=== PATIENT | female | born 1990 | race Caucasian/White ===

== ENCOUNTER 2017-12-14 14:11 | Emergency (ER) | payer MEDICAID, SELFPAY ==
[2017-12-14 14:12] VITALS: BP 123/82; PULSE 97; RESP 16; TEMP 37.3; O2SAT 98; BMI 43.2
--- NOTE | 2017-12-14 15:31 | CT_ITS ---
STUDY: CT ABDOMEN AND PELVIS WITHOUT CONTRAST REASON FOR EXAM: Female, 27 years old. Abdominal pain. Diarrhea. RADIATION DOSAGE (If Supplied By Facility): CTDIvol = ( 13.03 ) mGy, DLP = ( 1192.28 ) mGycm TECHNIQUE: Transaxial images were obtained from the dome of the diaphragm to the symphysis pubis without oral contrast, and without intravenous contrast. Sagittal and coronal images were reconstructed. Individualized dose optimization techniques were used for this CT. COMPARISON: 10/22/2017 FINDINGS: Evaluation of the abdominal viscera is limited in the absence of intravenous contrast. The visualized lung bases are clear. The visualized portions of the heart and pericardium are within normal limits. There are no calcified gallstones present. The liver demonstrates an unremarkable unenhanced appearance. The spleen is normal in size. The pancreas demonstrates an unremarkable unenhanced appearance. The adrenal glands are within normal limits. There are no renal or ureteral stones. There is no hydronephrosis. Normal visualized stomach. There are fluid-filled mildly thickened loops of small and large bowel, consistent with enterocolitis. There is no bowel obstruction. The appendix is visualized and appears normal. The aorta is normal in caliber. There is left upper quadrant mesenteric lymphadenopathy noted. There is no free air, free fluid or fluid collection. There are no destructive osseous lesions. CT/Abdomen/Pelvis W IV Cont ONLY IMPRESSION: Fluid-filled mildly thickened loops of small and large bowel which is consistent with enterocolitis. No bowel obstruction. Normal appendix. Left upper quadrant mesenteric lymphadenopathy. Electronically Signed: Shane Valdez, at 17:17 EDT Tel , Service support ,
--- NOTE | 2017-12-14 15:34 | ED.DCSUM_ITS ---
- ER Visit Summary Date of Service: 12/14/17 Chief Complaint: Abdominal pain and diarrhea History of Present Illness: The patient is a 27 F with history of kidney stones and GERD who presents for 3 days of worsening abdominal pain and diarrhea. Patient states she began having abdominal pain 3 days ago, and the next day it became acutely worse. It is generalized in more so on the left. She is having diarrhea every time she eats something. She describes it as watery stool. She has had 10-20 episodes. She took Pepto-Bismol 2 days ago and is still having black watery stool. No fever, chest pain, shortness of breath, cough, urinary symptoms, back pain. Patient has vomited twice after eating. He denies any history of similar symptoms. She has had a colonoscopy in the past due to a family history of early colon cancer. Physical Examination: Vital signs: afebrile, hemodynamically stable, no hypoxia on room air General: well nourished, well developed, in no distress Skin: warm, dry, no rash, no pallor HEENT: normocephalic and atraumatic; PERRL, EOMI, moist mucous membranes Cardiovascular: regular rate and rhythm without murmurs, no peripheral edema, 2 + pulses all distal extremities Respiratory: No increased work of breathing, lungs are clear to auscultation bilaterally, no rales, rhonchi or wheezing Abdominal: Abdomen is soft, diffusely tender, especially on the left upper and lower quadrants, with normoactive bowel sounds, no guarding or rebound, no masses, rectum is nontender, no external lesions, no cindy blood. Watery black stool on glove. MSK: Moves all extremities, no deformities, normal strength Neuro: Awake and alert, oriented ?4. No facial droop, sensation and motor function intact and symmetric Test Results: Abnormal Lab Results 12/14/17 12/14/17 12/14/17 15:46 15:46 16:18 WBC RBC Hgb Hct MCV MCH MCHC RDW RDW Differential Plt Count MPV Immature Gran % (Auto) Neut % (Auto) Lymph % (Auto) [place] % (Auto) Eos % (Auto) Baso % (Auto) Absolute Neuts (auto) Absolute Lymphs (auto) Total Counted Sodium 137 Potassium 3.4 L Chloride 105 Carbon Dioxide 22.0 Anion Gap 10 BUN 6 L Creatinine 0.86 Estim Creat Clear Calc 89.20 Est GFR (MDRD) Af Amer 103 Est GFR (MDRD) Non-Af 85 BUN/Creatinine Ratio 7.0 L Glucose 83 Calcium 8.6 Total Bilirubin 0.60 AST 23 ALT 30 Alkaline Phosphatase 110 Total Protein 7.5 Albumin 2.8 L Globulin 4.7 H Albumin/Globulin Ratio 0.6 L Lipase 125 Urine Color Yellow Urine Clarity Cloudy Urine pH 6.5 Ur Specific [place] 1.015 Urine Protein 30 H Urine Glucose (UA) Normal Urine Ketones 5 H Urine Occult Blood Negative Urine Nitrite Negative Urine Bilirubin 3 H Urine Urobilinogen 1 H Ur Leukocyte Esterase 25 H Urine Test Negative 12/14/17 16:18 WBC 5.6 RBC 4.84 Hgb 13.6 Hct 40.0 MCV 82.6 MCH 28.1 MCHC 34.0 RDW 13.4 RDW Differential 40.8 Plt Count 216 MPV 11.4 Immature Gran % (Auto) 0.200 Neut % (Auto) 54.0 Lymph % (Auto) 34.8 [place] % (Auto) 8.7 Eos % (Auto) 1.1 Baso % (Auto) 1.2 H Absolute Neuts (auto) 3.1 Absolute Lymphs (auto) 1.96 Total Counted Not Reportable Sodium Potassium Chloride Carbon Dioxide Anion Gap BUN Creatinine Estim Creat Clear Calc Est GFR (MDRD) Af Amer Est GFR (MDRD) Non-Af BUN/Creatinine Ratio Glucose Calcium Total Bilirubin AST ALT Alkaline Phosphatase Total Protein Albumin Globulin Albumin/Globulin Ratio Lipase Urine Color Urine Clarity Urine pH Ur Specific [place] Urine Protein Urine Glucose (UA) Urine Ketones Urine Occult Blood Urine Nitrite Urine Bilirubin Urine Urobilinogen Ur Leukocyte Esterase Urine Test Clinical Impression(s) from Imaging Studies Abdomen/Pelvis CT 12/14/17 15:31 IMPRESSION: Fluid-filled mildly thickened loops of small and large bowel which is consistent with enterocolitis. No bowel obstruction. Normal appendix. Left upper quadrant mesenteric lymphadenopathy. Electronically Signed: Shane Valdez, at 17:17 EDT Tel , Service support , Emergency Department Course and Treatment: Patient was offered and declined any pain or nausea medicine. Lab work was performed showing no leukocytosis, no significant electrolyte derangements, normal hepatic function, negative . Fecal occult test was negative, and this is consistent with patient' s black stool being secondary to Pepto-Bismol use. CT the abdomen and pelvis showed enterocolitis with some left upper quadrant mesenteric lymphadenitis. Patient is very well-appearing, afebrile, and nontoxic appearing. At this time antibiotics are not indicated, as there is no indication that she has a bacterial infection that would warrant antibiotic treatment. I discussed with her that if she continues to have diarrhea she needs to have stool studies performed by her doctor. At this time she will continue symptomatic care. She was given a prescription for Zofran for any further nausea. She agreed with this plan was discharged home. Treatment Plan: [] Disposition: [] Impression: Enterocolitis This note was generated with [employer] dictation software. It may contain incorrect words, spelling, and punctuation that were not noted in review of the chart prior to signing ED Disposition - Plan for ED Patient: Disposition: Home or Assisted Living Chief Complaint: Abd Pain Instructions: ED Food Poison Or Gastroenteritis, ED Gastroenteritis Non Infec Prescriptions: Ondansetron [Zofran Odt] 4 mg PO TID PRN #15 tab.rapdis PRN Reason: nausea and vomiting Referrals: Cristian Castillo MD [Primary Care Provider] - 3-5 Days if not improving Additional Instructions: Your workup did not show any concerning findings that require admission. You have no findings of bowel obstruction or any surgical emergency on your CT scan of your abdomen. Drink plenty of fluids to stay hydrated. You may use over-the -counter pain medications as needed for discomfort. Use the ondansetron as needed for nausea. You may use antidiarrheals as needed. If you continue to have diarrhea, please follow-up with your doctor for further testing, as you may need testing of the stool sample to look for causes of continued diarrhea. If you have any worsening of your condition or any new concerning symptoms, please return immediately to the emergency department for another evaluation.
[2017-12-14] MEDS: 0.9% Normal Saline 1,000 ML 1000 ML IV (15:57)
[2017-12-14 16:04] LABS: Bacteria 0 SEEN /hpf (None Seen); Mucous, Urine 0 SEEN /hpf (<or=2+); Red Blood Cells-Urine 0 SEEN /hpf (0-5)
[2017-12-14 16:11] LABS: Color, Urine Yellow (Yellow); Glucose, Dipstick Normal (Normal); Ketone-Dipstick 5 mg/dl (Negative); Leukocyte Esterase-Dipstick 25 /ul (Negative); Nitrite-Dipstick Negative (Negative); Occult Blood-Urine Negative /ul (Negative); Protein-Dipstick 30 mg/dl (Negative); Specific Gravity, Urine 1.015 (1.002-1.030); Urine Clarity Cloudy (Clear); Urine Urobilinogen 1 mg/dl (Normal); Urine pH 6.5 (5.0 - 8.0)
[2017-12-14 16:15] LABS: Internal QC Validated? YES +Cl - CLEAR BKGD; Pregnancy, Urine Negative Negative
[2017-12-14 16:28] LABS: Absolute Lymphocyte Count 1.96 X10^3/ul (0.83-4.51); Absolute Neutrophil Count 3.1 X10^3/uL (2.0-7.7); Basophil# 0.07 X10^3/uL; Basophil% 1.2 % (0-1); Eosinophil# 0.06 X10^3/uL; Eosinophils% 1.1 % (0-5); Hemoglobin 13.6 g/dl (12.0-15.0); Lymphocyte # 1.96 X10^3/ul (4.0); Lymphocyte % 34.8 % (19-41); Mean Corpuscular Hgb 28.1 pg (27.0-32.0); Mean Corpuscular Volume 82.6 fL (81-99); Mean Platelet Vol. 11.4 fl (6.2-12.0); Monocyte# 0.49 X10^3/uL; Monocyte% 8.7 % (0-10); Neutrophil # 3.05 X10^3/uL (2.7-7.7); Platelet Count 216 K/mm3 (150-450); RBC Distribution Width CV 13.4 % (11.6-14.6); RBC Distribution Width SD 40.8 fl (35.1-43.9); Red Blood Count 4.84 M/mm3 (4.2-5.4); White Blood Count 5.6 K/mm3 (4.4-11.0)
[2017-12-14 16:31] LABS: POSITIVE COUNT NO; POSITIVE DIFFERENTIAL NO; POSITIVE MORPHOLOGY NO
[2017-12-14 16:37] LABS: Urine Bilirubin Dipstick 3 mg/dL (Negative)
[2017-12-14 16:43] LABS: ALB/GLOB Ratio 0.6 RATIO (0.9-2.4); AST(SGOT) 23 U/L (15-37); Alanine Aminotransfer ALT/SGPT 30 U/L (13-56); Albumin, Serum 2.8 g/dL (3.2-5.0); Alkaline Phosphatase 110 U/L (45-117); Anion Gap 10 (5-15); BUN 6 mg/dL (7-18); Calcium,Total 8.6 mg/dL (8.5-10.1); Chloride 105 mmol/L (98-107); Creatinine, Serum 0.86 mg/dL (0.55-1.02); EST Glomerular Filtration Rate 85 mL/min (>60); Est Glom Filt Rate - Afr Amer 103 mL/min (>60); Globulin 4.7 g/dL (2.2-4.2); Glucose 83 mg/dL (74-106); Lipase 125 U/L (73-393); Potassium 3.4 mmol/L (3.5-5.1); Protein, Total 7.5 g/dL (6.4-8.2); Sodium Level 137 mmol/L (136-145)
[2017-12-14 17:12] LABS: Squamous Epithelial Cells - UA 0-5 SEEN /hpf (5-10); White Blood Cells 0-5 SEEN /hpf (0-5)
--- NOTE | 2017-12-14 17:25 | ED.DEP ---
ED Disposition - Plan for ED Patient: Disposition: Home or Assisted Living Chief Complaint: Abd Pain Instructions: ED Gastroenteritis Non Infec, ED Food Poison Or Gastroenteritis Prescriptions: Ondansetron [Zofran Odt] 4 mg PO TID PRN #15 tab.rapdis PRN Reason: nausea and vomiting Referrals: Cristian Castillo MD [Primary Care Provider] - 3-5 Days if not improving Additional Instructions: Your workup did not show any concerning findings that require admission. You have no findings of bowel obstruction or any surgical emergency on your CT scan of your abdomen. Drink plenty of fluids to stay hydrated. You may use [id number]-mgy-ltenopt pain medications as needed for discomfort. Use the ondansetron as needed for nausea. You may use antidiarrheals as needed. If you continue to have diarrhea, please follow-up with your doctor for further testing, as you may need testing of the stool sample to look for causes of continued diarrhea. If you have any worsening of your condition or any new concerning symptoms, please return immediately to the emergency department for another evaluation.
--- NOTE | 2017-12-14 17:34 | DCINST.ED_ITS ---
ED Disposition - Plan for ED Patient: Disposition: Home or Assisted Living Chief Complaint: Abd Pain Instructions: ED Gastroenteritis Non Infec, ED Food Poison Or Gastroenteritis Prescriptions: Ondansetron [Zofran Odt] 4 mg PO TID PRN #15 tab.rapdis PRN Reason: nausea and vomiting Referrals: Cristian Castillo MD [Primary Care Provider] - 3-5 Days if not improving Additional Instructions: Your workup did not show any concerning findings that require admission. You have no findings of bowel obstruction or any surgical emergency on your CT scan of your abdomen. Drink plenty of fluids to stay hydrated. You may use over-the -counter pain medications as needed for discomfort. Use the ondansetron as needed for nausea. You may use antidiarrheals as needed. If you continue to have diarrhea, please follow-up with your doctor for further testing, as you may need testing of the stool sample to look for causes of continued diarrhea. If you have any worsening of your condition or any new concerning symptoms, please return immediately to the emergency department for another evaluation.
[2017-12-14 17:48] VITALS: BP 132/85; PULSE 95; RESP 14; O2SAT 98
== END 2017-12-14 17:50 | disposition home or self-care (01) ==
PROVIDERS: Emergency Provider Emergency Medicine; Family Provider Internal Medicine; PCP Internal Medicine
DX: K52.9 Noninfective gastroenteritis and colitis, unspecified (principal); E66.9 Obesity, unspecified; Z87.442 Personal history of urinary calculi; Z79.899 Other long term (current) drug therapy
CPT/HCPCS: 74177; 80053; 81001; 81025; 82274; 83690; 85025; 96360; 96361; 99283; J7030; Q9967

== ENCOUNTER 2017-12-24 23:18 | Emergency (ER) | payer MEDICAID, SELFPAY ==
[2017-12-24 23:18] VITALS: BP 111/85; PULSE 84; RESP 16; TEMP 36.3; O2SAT 99; BMI 47.8
--- NOTE | 2017-12-24 23:44 | ED.VISSUMM ---
- ER Visit Summary Date of Service: 12/24/17 Chief Complaint: Flank pain History of Present Illness: The patient is a 27 F with right-sided flank pain. Symptoms started gradually over the past 2 days. Patient says that her pain is worse when she moves in certain positions. She has increasing pain with urination and reports dysuria and urinary frequency. She does report a history of kidney stones, but she does not have a urologist and she never had lithotripsy stents or other procedures. Denies any INSPECTOR EXHAUST EMISSIONS symptoms. Denies any fever. Denies any other pains, nausea, vomiting, diarrhea, or constipation. She has a history of PCO S and takes oral contraceptives. Physical Examination: Afebrile and vital signs unremarkable. She appears nontoxic and in no acute distress, sitting comfortably. Skin appears normal. Heart regular. Lungs clear. Abdomen soft and nontender. Back shows some CVA tenderness on the right side only. Test Results: Urinalysis and laboratory studies are pending. Emergency Department Course and Treatment: Patient was concerned for kidney stone. This is a possibility, however I reviewed her old and most recent CT which had no stones. The nature of her pain is not consistent with ureteral colic. I am more suspicious for a UTI, right-sided pyelonephritis. I did check basic labs including a liver panel and lipase testing. Will check a test and urinalysis. I do not feel that CT is appropriate given the risks of radiation as I have low suspicion for kidney stones or other process which would be detected on CT imaging. Oncoming doctor will check the results and make the appropriate treatment decisions and disposition. Treatment Plan: As above Disposition: Likely discharge pending further evaluation Impression: 1. Right flank pain This note was generated with [employer] dictation software. It may contain incorrect words, spelling, and punctuation that were not noted in review of the chart prior to signing ED Disposition - Plan for ED Patient: Chief Complaint: Flank Pain Referrals: Cristian Castillo MD [Primary Care Provider] -
--- NOTE | 2017-12-24 23:50 | ED.DCSUM_ITS ---
- ER Visit Summary Date of Service: 12/24/17 Chief Complaint: Flank pain History of Present Illness: The patient is a 27 F with right-sided flank pain. Symptoms started gradually over the past 2 days. Patient says that her pain is worse when she moves in certain positions. She has increasing pain with urination and reports dysuria and urinary frequency. She does report a history of kidney stones, but she does not have a urologist and she never had lithotripsy stents or other procedures. Denies any HOUSE REGISTRY RN symptoms. Denies any fever. Denies any other pains, nausea, vomiting, diarrhea, or constipation. She has a history of PCO S and takes oral contraceptives. Physical Examination: Afebrile and vital signs unremarkable. She appears nontoxic and in no acute distress, sitting comfortably. Skin appears normal. Heart regular. Lungs clear. Abdomen soft and nontender. Back shows some CVA tenderness on the right side only. Test Results: Urinalysis and laboratory studies are pending. Emergency Department Course and Treatment: Patient was concerned for kidney stone. This is a possibility, however I reviewed her old and most recent CT which had no stones. The nature of her pain is not consistent with ureteral colic. I am more suspicious for a UTI, right-sided pyelonephritis. I did check basic labs including a liver panel and lipase testing. Will check a test and urinalysis. I do not feel that CT is appropriate given the risks of radiation as I have low suspicion for kidney stones or other process which would be detected on CT imaging. Oncoming doctor will check the results and make the appropriate treatment decisions and disposition. Treatment Plan: As above Disposition: Likely discharge pending further evaluation Impression: 1. Right flank pain This note was generated with [employer] dictation software. It may contain incorrect words, spelling, and punctuation that were not noted in review of the chart prior to signing ED Disposition - Plan for ED Patient: Chief Complaint: Flank Pain Referrals: Cristian Castillo MD [Primary Care Provider] -
[2017-12-24] MEDS: Ketorolac 30 MG/ML Syringe IV (23:58)
[2017-12-24] MEDS: Ondansetron 4 MG/2 ML Vial IV (23:58)
[2017-12-24] MEDS: 0.9% Normal Saline 1,000 ML 1000 ML IV (23:58)
[2017-12-25 00:07] LABS: Red Blood Cells-Urine 0 SEEN /hpf (0-5)
[2017-12-25 00:09] LABS: Color, Urine Yellow (Yellow); Glucose, Dipstick Normal (Normal); Ketone-Dipstick 5 mg/dl (Negative); Leukocyte Esterase-Dipstick 100 /ul (Negative); Nitrite-Dipstick Negative (Negative); Occult Blood-Urine Negative /ul (Negative); Protein-Dipstick 30 mg/dl (Negative); Specific Gravity, Urine 1.015 (1.002-1.030); Urine Clarity Cloudy (Clear); Urine Urobilinogen 4 mg/dl (Normal)
[2017-12-25 00:11] LABS: Urine Bilirubin Dipstick 1 mg/dL (Negative)
[2017-12-25 00:12] LABS: Absolute Lymphocyte Count 3.31 X10^3/ul (0.83-4.51); Basophil# 0.13 X10^3/uL; Basophil% 1.6 % (0-1); Eosinophil# 0.21 X10^3/uL; Eosinophils% 2.5 % (0-5); Hematocrit 39.9 % (37-47); Hemoglobin 13.7 g/dl (12.0-15.0); Lymphocyte # 3.31 X10^3/ul (4.0); Lymphocyte % 39.5 % (19-41); Mean Corp Hgb Conc 34.3 g/gl (32-36); Mean Corpuscular Hgb 28.6 pg (27.0-32.0); Mean Corpuscular Volume 83.3 fL (81-99); Mean Platelet Vol. 12.1 fl (6.2-12.0); Monocyte# 0.68 X10^3/uL; Monocyte% 8.1 % (0-10); Neutrophil # 4.03 X10^3/uL (2.7-7.7); Neutrophil % 48.1 % (47-70); Platelet Count 303 K/mm3 (150-450); RBC Distribution Width CV 13.5 % (11.6-14.6); RBC Distribution Width SD 40.6 fl (35.1-43.9); Red Blood Count 4.79 M/mm3 (4.2-5.4); White Blood Count 8.4 K/mm3 (4.4-11.0)
[2017-12-25 00:13] LABS: POSITIVE COUNT NO; POSITIVE DIFFERENTIAL NO; POSITIVE MORPHOLOGY NO
[2017-12-25 00:17] LABS: Squamous Epithelial Cells - UA 0-5 SEEN /hpf (5-10)
[2017-12-25 00:18] LABS: Bacteria 1+ /hpf (None Seen); Mucous, Urine 3+ /hpf (<or=2+); White Blood Cells 5-10 SEEN /hpf (0-5)
[2017-12-25 00:27] LABS: ALB/GLOB Ratio 0.7 RATIO (0.9-2.4); AST(SGOT) 23 U/L (15-37); Alanine Aminotransfer ALT/SGPT 53 U/L (13-56); Albumin, Serum 3.1 g/dL (3.2-5.0); Alkaline Phosphatase 104 U/L (45-117); Anion Gap 5 (5-15); BUN 10 mg/dL (7-18); BUN/Creat Ratio 11.7 RATIO (10-20); Calcium,Total 8.7 mg/dL (8.5-10.1); Chloride 106 mmol/L (98-107); Creatinine, Serum 0.85 mg/dL (0.55-1.02); EST Glomerular Filtration Rate 85 mL/min (>60); Est Glom Filt Rate - Afr Amer 103 mL/min (>60); Estimated Creatinine Clearance 75.68 ml/min; Globulin 4.4 g/dL (2.2-4.2); Glucose 83 mg/dL (74-106); Lipase 168 U/L (73-393); Potassium 3.3 mmol/L (3.5-5.1); Protein, Total 7.5 g/dL (6.4-8.2); Sodium Level 141 mmol/L (136-145)
[2017-12-25 00:41] LABS: Pregnancy, Serum, hCG Quali. NEGATIVE Negative (0-9 Nonpreg)
--- NOTE | 2017-12-25 00:45 | ED.DEP ---
ED Disposition - Plan for ED Patient: Disposition: Home or Assisted Living Chief Complaint: Flank Pain Instructions: ED Kidney Infec Female Prescriptions: Smz/Tmp Ds [Bactrim Ds] 1 tab PO BID #14 tab Referrals: Cristian Castillo MD [Primary Care Provider] -
[2017-12-25] MEDS: Smz/Tmp Ds Tablet 1 TABLET PO (00:54)
[2017-12-25 00:57] VITALS: BP 126/90; PULSE 84; RESP 18; O2SAT 98
== END 2017-12-25 00:57 | disposition home or self-care (01) ==
PROVIDERS: Emergency Medicine; Emergency Provider Emergency Medicine; Family Provider Internal Medicine; PCP Internal Medicine
DX: N12 Tubulo-interstitial nephritis, not specified as acute or chronic (principal); R10.9 Unspecified abdominal pain; E28.2 Polycystic ovarian syndrome; D32.9 Benign neoplasm of meninges, unspecified; Z79.899 Other long term (current) drug therapy; Z87.442 Personal history of urinary calculi
CPT/HCPCS: 80053; 81001; 83690; 84703; 85025; 96361; 96374; 96375; 99284; J2405

== ENCOUNTER 2018-01-02 13:09 | Emergency (ER) | payer MEDICAID, SELFPAY ==
[2018-01-02 13:09] VITALS: BP 150/91; PULSE 93; RESP 18; TEMP 37; O2SAT 96; BMI 46.3
[2018-01-02] MEDS: 0.9% Normal Saline 1,000 ML 1000 ML IV (14:01)
--- NOTE | 2018-01-02 14:04 | NURSING ---
NO OLD EKGS
[2018-01-02 14:08] LABS: Absolute Lymphocyte Count 2.91 X10^3/ul (0.83-4.51); Basophil# 0.11 X10^3/uL; Basophil% 1.2 % (0-1); Eosinophil# 0.43 X10^3/uL; Eosinophils% 4.8 % (0-5); Hematocrit 38.7 % (37-47); Hemoglobin 13.1 g/dl (12.0-15.0); Lymphocyte # 2.91 X10^3/ul (4.0); Lymphocyte % 32.2 % (19-41); Mean Corp Hgb Conc 33.9 g/gl (32-36); Mean Corpuscular Hgb 28.6 pg (27.0-32.0); Mean Corpuscular Volume 84.5 fL (81-99); Mean Platelet Vol. 12.1 fl (6.2-12.0); Monocyte# 0.54 X10^3/uL; Neutrophil # 5.03 X10^3/uL (2.7-7.7); Neutrophil % 55.7 % (47-70); POSITIVE COUNT NO; POSITIVE DIFFERENTIAL NO; POSITIVE MORPHOLOGY NO; Platelet Count 267 K/mm3 (150-450); RBC Distribution Width CV 13.4 % (11.6-14.6); RBC Distribution Width SD 41.2 fl (35.1-43.9); Red Blood Count 4.58 M/mm3 (4.2-5.4)
[2018-01-02 14:22] LABS: Anion Gap 11 (5-15); BUN 11 mg/dL (7-18); BUN/Creat Ratio 13.5 RATIO (10-20); Calcium,Total 8.7 mg/dL (8.5-10.1); Chloride 106 mmol/L (98-107); Creatinine, Serum 0.81 mg/dL (0.55-1.02); EST Glomerular Filtration Rate 90 mL/min (>60); Est Glom Filt Rate - Afr Amer 109 mL/min (>60); Estimated Creatinine Clearance 79.42 ml/min; Glucose 79 mg/dL (74-106); Sodium Level 141 mmol/L (136-145)
--- NOTE | 2018-01-02 15:10 | RAD_ITS ---
STUDY: X-RAY CHEST REASON FOR EXAM: Female, 27 years old. Cough and weakness TECHNIQUE: PA and lateral views of the chest. COMPARISON: None. FINDINGS: The lungs are clear and expanded. There is no demonstrated pleural abnormality. Normal size heart. Normal mediastinum and mariella. Normal visualized pulmonary arteries. Normal visualized aortic arch and descending thoracic aorta. Normal visualized thoracic spine. Normal visualized ribs, clavicles, and shoulders. There is no demonstrated abnormality of the visualized soft tissue structures of the upper abdomen. RAD/Chest PA and Lateral IMPRESSION: Normal x-ray examination of the chest. Electronically Signed: Neel Cline DO at 15:58 EDT Tel , Service support ,
[2018-01-02 15:17] LABS: Mucous, Urine 0 SEEN /hpf (<or=2+); Red Blood Cells-Urine 0 SEEN /hpf (0-5); White Blood Cells 0 SEEN /hpf (0-5)
[2018-01-02 15:18] LABS: Color, Urine Yellow (Yellow); Glucose, Dipstick Normal (Normal); Ketone-Dipstick Negative (Negative); Leukocyte Esterase-Dipstick Negative /ul (Negative); Nitrite-Dipstick Negative (Negative); Occult Blood-Urine Negative /ul (Negative); Protein-Dipstick Negative (Negative); Urine Bilirubin Dipstick Negative (Negative); Urine Clarity Sl. Cloudy (Clear); Urine Urobilinogen Normal (Normal)
[2018-01-02 15:20] LABS: Internal QC Validated? YES +Cl - CLEAR BKGD; Pregnancy, Urine Negative Negative
[2018-01-02 15:25] LABS: Bacteria RARE /hpf (None Seen); Squamous Epithelial Cells - UA 0-5 SEEN /hpf (5-10)
[2018-01-02 15:30] VITALS: BP 145/90; PULSE 85; RESP 14; O2SAT 99
--- NOTE | 2018-01-02 16:11 | ED.VISSUMM ---
- ER Visit Summary Date of Service: 01/02/18 Chief Complaint: Weakness and tremor History of Present Illness: The patient is a 27 F with a history of PCO S and depression who complains of 2 weeks of generalized weakness and tremors. She also complains of some mild diffuse myalgias. No fevers chest pain shortness of breath nausea vomiting cough congestion or other recent illness. Physical Examination: Afebrile vitals are unremarkable Heart regular rate and rhythm Lungs clear Abdomen soft Alert no focal or lateralizing neurological deficits normal strength and sensation Test Results: EKG shows sinus rhythm at a rate of 84. Chest x-ray is normal. CBC BMP urinalysis all unremarkable and negative. Emergency Department Course and Treatment: I explained to the patient I am uncertain of the etiology of her generalized weakness but she has an unremarkable evaluation and workup here. She was advised to follow-up with her primary care physician. She understands to return for new or worsening symptoms. She was discharged. Treatment Plan: [] Disposition: Discharge Impression: Generalized weakness Tremor This note was generated with [employer] dictation software. It may contain incorrect words, spelling, and punctuation that were not noted in review of the chart prior to signing ED Disposition - Plan for ED Patient: Chief Complaint: Fatigue Referrals: Cristian Castillo MD [Primary Care Provider] -
--- NOTE | 2018-01-02 16:13 | ED.DEP ---
ED Disposition - Plan for ED Patient: Chief Complaint: Fatigue Instructions: ED Weakness [facility] Referrals: Cristian Castillo MD [Primary Care Provider] -
[2018-01-02 16:23] VITALS: BP 120/77; PULSE 64; RESP 15; O2SAT 98
== END 2018-01-02 16:24 | disposition home or self-care (01) ==
PROVIDERS: Emergency Provider Emergency Medicine; Family Provider Internal Medicine; PCP Internal Medicine
DX: M62.81 Muscle weakness (generalized) (principal); R25.1 Tremor, unspecified; E28.2 Polycystic ovarian syndrome
CPT/HCPCS: 71046; 80048; 81001; 81025; 85025; 93005; 96360; 96361; 99284; J7030; A4216

== ENCOUNTER 2018-04-16 22:10 | Emergency (ER) | payer MEDICAID, SELFPAY ==
[2018-04-16 22:11] VITALS: BP 168/106; PULSE 101; RESP 16; TEMP 37.2; O2SAT 97; BMI 50.2
[2018-04-16 23:44] LABS: Mucous, Urine 0 SEEN /hpf (<or=2+); Red Blood Cells-Urine 0 SEEN /hpf (0-5)
[2018-04-16 23:46] LABS: Color, Urine Yellow (Yellow); Glucose, Dipstick Normal (Normal); Ketone-Dipstick Negative (Negative); Leukocyte Esterase-Dipstick 25 /ul (Negative); Nitrite-Dipstick Negative (Negative); Occult Blood-Urine Negative /ul (Negative); Protein-Dipstick 15 mg/dl (Negative); Specific Gravity, Urine 1.015 (1.002-1.030); Urine Bilirubin Dipstick Negative (Negative); Urine Clarity Clear (Clear); Urine Urobilinogen Normal (Normal)
[2018-04-16 23:52] LABS: Bacteria RARE /hpf (None Seen); Squamous Epithelial Cells - UA 0-5 SEEN /hpf (5-10); White Blood Cells 0-5 SEEN /hpf (0-5)
[2018-04-17 00:11] LABS: Absolute Lymphocyte Count 3.21 X10^3/ul (0.83-4.51); Absolute Neutrophil Count 5.6 X10^3/uL (2.0-7.7); Basophil# 0.06 X10^3/uL; Basophil% 0.6 % (0-1); Eosinophil# 0.25 X10^3/uL; Eosinophils% 2.6 % (0-5); Hematocrit 40.5 % (37-47); Hemoglobin 13.4 g/dl (12.0-15.0); Lymphocyte # 3.21 X10^3/ul (4.0); Lymphocyte % 33.3 % (19-41); Mean Corp Hgb Conc 33.1 g/gl (32-36); Mean Corpuscular Hgb 28.2 pg (27.0-32.0); Mean Corpuscular Volume 85.3 fL (81-99); Mean Platelet Vol. 11.5 fl (6.2-12.0); Monocyte# 0.47 X10^3/uL; Monocyte% 4.9 % (0-10); Neutrophil # 5.63 X10^3/uL (2.7-7.7); Neutrophil % 58.4 % (47-70); Platelet Count 317 K/mm3 (150-450); RBC Distribution Width SD 40.5 fl (35.1-43.9); Red Blood Count 4.75 M/mm3 (4.2-5.4); White Blood Count 9.6 K/mm3 (4.4-11.0)
[2018-04-17 00:12] VITALS: RESP 18
[2018-04-17 00:16] LABS: POSITIVE COUNT NO; POSITIVE DIFFERENTIAL NO; POSITIVE MORPHOLOGY NO
[2018-04-17 00:21] LABS: ALB/GLOB Ratio 0.6 RATIO (0.9-2.4); AST(SGOT) 35 U/L (15-37); Alanine Aminotransfer ALT/SGPT 37 U/L (13-56); Alkaline Phosphatase 120 U/L (45-117); Anion Gap 7 (5-15); BUN 15 mg/dL (7-18); BUN/Creat Ratio 17.4 RATIO (10-20); Calcium,Total 9.1 mg/dL (8.5-10.1); Chloride 102 mmol/L (98-107); Creatinine, Serum 0.86 mg/dL (0.55-1.02); EST Glomerular Filtration Rate 84 mL/min (>60); Est Glom Filt Rate - Afr Amer 102 mL/min (>60); Estimated Creatinine Clearance 74.15 ml/min; Globulin 4.7 g/dL (2.2-4.2); Glucose 99 mg/dL (74-106); Lipase 178 U/L (73-393); Potassium 3.8 mmol/L (3.5-5.1); Protein, Total 7.7 g/dL (6.4-8.2); Sodium Level 136 mmol/L (136-145)
--- NOTE | 2018-04-17 00:24 | ED.RN ---
unable to obtain IV access after [address] Dickson made aware. Lab will be up to attempt blood draw
[2018-04-17 00:49] LABS: Pregnancy, Serum, hCG Quali. NEGATIVE Negative (0-9 Nonpreg)
--- NOTE | 2018-04-17 01:05 | ED.VISSUMM ---
- ER Visit Summary Date of Service: 04/17/18 Chief Complaint: Flank pain and abdominal pain History of Present Illness: The patient is a 28 F who presents with flank and abdominal pain. She has chronic right flank pain for several months. However since yesterday she developed intermittent sharp stabbing mid right abdominal pain. She states his last couple of seconds at a time. It is only mild. She does not actually have pain at the time my history. She denies any associated symptoms such as nausea vomiting or diarrhea. She does have dysuria frequency and urgency. No fevers. Physical Examination: Heart rate 101 blood pressure 168/106 afebrile Resting comfortably no distress Heart regular rate and rhythm Lungs clear Abdomen soft she does have some mid right and upper abdominal tenderness without guarding without rebound no Madrigal's sign no Rovsing sign Test Results: CBC BMP hepatic function lipase unremarkable. UA does show 25 leukocyte esterase and rare bacteria. This was sent for culture. Emergency Department Course and Treatment: Patient is resting comfortably. She only complains of mild intermittent pain lasting a couple of seconds at a time. She was evaluated with laboratory studies to rule out cholecystitis. I explained her symptoms could potentially be consistent with biliary colic. She also has some evidence of UTI. This was sent for culture. Given that she is symptomatic we will treat. She was given Bactrim here and a prescription for the same. She was advised to follow-up with her primary care physician for further outpatient workup should symptoms continue. Patient discharged. Treatment Plan: [] Disposition: Discharge Impression: Chronic right flank pain Right upper quadrant pain UTI This note was generated with [email or web address] dictation software. It may contain incorrect words, spelling, and punctuation that were not noted in review of the chart prior to signing ED Disposition - Plan for ED Patient: Chief Complaint: Flank Pain Referrals: Cristian Castillo MD [Primary Care Provider] -
--- NOTE | 2018-04-17 01:07 | ED.DEP ---
ED Disposition - Plan for ED Patient: Chief Complaint: Flank Pain Instructions: ED Flank Pain Uncertain Cause, ED Abdominal Pain Gallstone Poss, ED UTI Cystitis Female Prescriptions: Smz/Tmp Ds [Bactrim Ds] 1 tab PO BID #6 tab Referrals: Cristian Castillo MD [Primary Care Provider] -
[2018-04-17] MEDS: Smz/Tmp Ds Tablet 1 TABLET PO (01:20)
[2018-04-17 01:28] VITALS: RESP 18
== END 2018-04-17 01:31 | disposition home or self-care (01) ==
PROVIDERS: Emergency Provider Emergency Medicine; Family Provider Internal Medicine; PCP Internal Medicine
DX: N39.0 Urinary tract infection, site not specified (principal); G89.29 Other chronic pain; R10.11 Right upper quadrant pain; Z79.899 Other long term (current) drug therapy
CPT/HCPCS: 36415; 80053; 81001; 83690; 84703; 85025; 87086; 87088; 99285

== ENCOUNTER → 2018-07-26 08:05 | Outpatient (CLI) | payer MEDICAID, SELFPAY ==
--- NOTE | 2018-07-26 08:09 | CT_ITS ---
STUDY: CT ABDOMEN AND PELVIS WITHOUT CONTRAST REASON FOR EXAM: Female, 28 years old. Bilateral flank pain persistent for one year RADIATION DOSAGE (If Supplied By Facility): CTDIvol = ( 27.25 ) mGy, DLP = ( 1402.57 ) mGycm TECHNIQUE: Transaxial images were obtained from the dome of the diaphragm to the symphysis pubis without oral contrast, and without intravenous contrast. Sagittal and coronal images were reconstructed. Individualized dose optimization techniques were used for this CT. COMPARISON: None. FINDINGS: The visualized lung bases are unremarkable. The visualized portions of the heart are within normal limits. Normal liver. Normal gallbladder and extrahepatic biliary system. Normal spleen. Normal pancreas. Normal bilateral adrenal glands. Normal right kidney. Normal left kidney. Normal visualized stomach. Normal small intestine. Normal colon. The appendix is visualized and appears normal. Normal abdominal aorta. Normal inferior vena cava. Normal retroperitoneum. Normal urinary bladder. Normal abdominal wall. Normal osseous structures. CT/Abdomen/Pelvis without Cont IMPRESSION: Normal unenhanced CT of the abdomen and pelvis. Electronically Signed: Ginger Howard, at 7:01 EST Tel , Service support ,
== END ==
PROVIDERS: Family Provider Internal Medicine; PCP Internal Medicine; Referring Provider Urology; Visit Provider Urology
DX: N20.0 Calculus of kidney (principal)
CPT/HCPCS: 74176

== ENCOUNTER 2019-08-02 17:39 | Emergency (ER) | payer MEDICAID, SELFPAY ==
[2019-08-02 17:42] VITALS: BP 115/78; PULSE 99; RESP 18; TEMP 36.1; O2SAT 95; BMI 55.0
--- NOTE | 2019-08-02 18:41 | CT_ITS ---
STUDY: CT ABDOMEN AND PELVIS WITHOUT CONTRAST REASON FOR EXAM: Female, 29 years old. PT STATED LEFT FLANK PAIN RADIATION DOSAGE (If Supplied By Facility): CTDIvol = ( 33.26 ) mGy, DLP = ( 1820.09 ) mGycm TECHNIQUE: Transaxial images were obtained from the dome of the diaphragm to the symphysis pubis without oral contrast, and without intravenous contrast. Sagittal and coronal images were reconstructed. Individualized dose optimization techniques were used for this CT. COMPARISON: July 26, 2018 FINDINGS: The visualized lung bases are unremarkable. The visualized portions of the heart are within normal limits. Normal liver. Normal gallbladder and extrahepatic biliary system. Normal spleen. Normal pancreas. Normal bilateral adrenal glands. Normal right kidney. Normal left kidney. Normal visualized stomach. Normal small intestine. Normal colon. The appendix is visualized and appears normal. Normal abdominal aorta. Normal inferior vena cava. Normal retroperitoneum. Normal urinary bladder. Normal abdominal wall. Normal osseous structures. CT/Abdomen/Pelvis without Cont IMPRESSION: Normal unenhanced CT of the abdomen and pelvis. Electronically Signed: Eugenio Go DO at 20:37 EDT Tel [phone], Service support ,
[2019-08-02] MEDS: Ketorolac 30 MG/ML Syringe IV (19:13)
[2019-08-02] MEDS: Ondansetron 4 MG/2 ML Vial IV (19:13)
[2019-08-02] MEDS: 0.9% Normal Saline 1,000 ML 250 ML IV (19:13)
[2019-08-02 19:16] VITALS: PULSE 76; RESP 14; O2SAT 99
[2019-08-02 20:06] LABS: Internal QC Validated? YES +Cl - CLEAR BKGD; Pregnancy, Serum, hCG Quali. NEGATIVE Negative
[2019-08-02 20:30] LABS: Mucous, Urine 0 SEEN /hpf (<or=2+); Red Blood Cells-Urine 0 SEEN /hpf (0-5); Squamous Epithelial Cells - UA 0 SEEN /hpf (5-10)
[2019-08-02 20:38] LABS: Color, Urine Yellow (Yellow); Glucose, Dipstick Normal (Normal); Ketone-Dipstick Negative (Negative); Leukocyte Esterase-Dipstick 25 /ul (Negative); Nitrite-Dipstick Negative (Negative); Occult Blood-Urine Negative /ul (Negative); Protein-Dipstick Negative (Negative); Specific Gravity, Urine 1.015 (1.002-1.030); Urine Bilirubin Dipstick Negative (Negative); Urine Clarity Sl. Cloudy (Clear); Urine Urobilinogen Normal (Normal)
[2019-08-02 20:44] LABS: Bacteria RARE /hpf (None Seen); White Blood Cells 0-5 SEEN /hpf (0-5)
--- NOTE | 2019-08-02 21:19 | ED.VISSUMM ---
- ER Visit Summary Date of Service: 08/02/19 Chief Complaint: Left flank pain History of Present Illness: The patient is a [address] Castillo. She reports that she has left flank pain that began 2 days ago. Came on suddenly. Says sharp, stabbing pain is 1010 worsened 710 currently. Is worsened by movement. Relieved by remaining still and ibuprofen. She had nausea without vomiting. No diarrhea. Last bowel was yesterday. No melanotic easy. She does report she had dysuria and frequency. Last menstrual period was 3 weeks ago. No vaginal bleeding or discharge. She reports she is had similar symptoms previously with kidney stones. Physical Examination: Vitals: Stable. Afebrile. General: Well-nourished and well-developed. Head: Normocephalic atraumatic. Neck: Supple, no lymphadenopathy. No JVD. Nontender. Cardiovascular: Regular rate and rhythm. No murmurs. Respiratory: No respiratory distress. Clear to auscultation bilaterally. Abdominal: Soft, nontender, nondistended, normal bowel sounds. No guarding, rebound, or peritoneal signs. Back: Nontender. Extremities: Nontender, no edema. Skin: Normal color, no rash. Neurologic: Alert and oriented ?3. Cranial nerves II through XII are intact. Normal strength and sensation. Psych: Normal affect. Test Results: Urinalysis is negative. test is negative. Clinical Impression(s) from Imaging Studies Abdomen/Pelvis CT 08/02/19 18:41 IMPRESSION: Normal unenhanced CT of the abdomen and pelvis. Electronically Signed: Eugenio Go DO at 20:37 EDT Tel [phone], Service support , Emergency Department Course and Treatment: Patient was treated Toradol and Zofran IV. She is resting comfortably. Treatment Plan: Patient be discharged naproxen and Zofran. Instructed to follow-up with her primary care physician in 3 to 5 days if not improving. Return to the emergency department for any worsening symptoms. Disposition: To home in improved and stable condition. Impression: 1. Left flank pain, uncertain cause. This note was generated with [employer] software. It may contain incorrect words, spelling, and punctuation that were not noted in review of the chart prior to signing ED Disposition - Plan for ED Patient: Disposition: Home or Assisted Living Instructions: FLANK PAIN, Uncertain Cause Prescriptions: Naproxen [Naprosyn] 500 mg PO BID #14 tab Prescription Printed Ondansetron [Zofran Odt] 4 mg PO Q8H PRN PRN #10 tab PRN Reason: Nausea Prescription Printed Referrals: Cristian Castillo MD [Primary Care Provider] - 1 Week if not improving
[2019-08-02 21:31] VITALS: BP 120/99; PULSE 84; RESP 16; O2SAT 99
== END 2019-08-02 21:33 | disposition home or self-care (01) ==
PROVIDERS: Emergency Provider Emergency Medicine; PCP Internal Medicine
DX: R10.9 Unspecified abdominal pain (principal); I10 Essential (primary) hypertension; Z87.442 Personal history of urinary calculi
CPT/HCPCS: 74176; 81001; 84703; 96361; 96374; 96375; 99282; J7030; A4216; J2405

== ENCOUNTER 2020-01-09 12:59 | Emergency (ER) | payer MEDICAID, SELFPAY ==
[2020-01-09 13:00] VITALS: BP 123/100; PULSE 101; RESP 18; TEMP 36.3; O2SAT 96; BMI 53.0
--- NOTE | 2020-01-09 13:31 | CT_ITS ---
STUDY: CT ABDOMEN AND PELVIS WITHOUT CONTRAST REASON FOR EXAM: Female, 29 years old. RT FLANK PAIN RADIATION DOSAGE (If Supplied By Facility): CTDIvol = ( 22.18 ) mGy, DLP = ( 1174.74 ) mGycm TECHNIQUE: Transaxial images were obtained from the dome of the diaphragm to the symphysis pubis without oral contrast, and without intravenous contrast. Sagittal and coronal images were reconstructed. Individualized dose optimization techniques were used for this CT. COMPARISON: 08/02/2019 FINDINGS: The visualized lung bases are unremarkable. The visualized portions of the heart are within normal limits. Normal liver. Normal gallbladder and extrahepatic biliary system. Normal spleen. Normal pancreas. Normal bilateral adrenal glands. Normal right kidney. Normal left kidney. Normal visualized stomach. Normal small intestine. Normal colon. The appendix is visualized and appears normal. Normal abdominal aorta. Normal inferior vena cava. Normal retroperitoneum. Normal urinary bladder. Normal abdominal wall. Normal osseous structures. CT/Abdomen/Pelvis without Cont IMPRESSION: Normal unenhanced CT of the abdomen and pelvis. Electronically Signed: Reggie Lorenzana MD at 15:24 EDT Tel , Service support ,
[2020-01-09 13:48] LABS: Squamous Epithelial Cells - UA 0 SEEN /hpf (5-10)
[2020-01-09 13:50] LABS: Color, Urine Yellow (Yellow); Glucose, Dipstick Normal (Normal); Ketone-Dipstick 5 mg/dl (Negative); Leukocyte Esterase-Dipstick 500 /ul (Negative); Nitrite-Dipstick Negative (Negative); Occult Blood-Urine 10 /ul (Negative); Protein-Dipstick 15 mg/dl (Negative); Specific Gravity, Urine 1.025 (1.002-1.030); Urine Bilirubin Dipstick Negative (Negative); Urine Clarity Sl. Cloudy (Clear); Urine Urobilinogen Normal (Normal)
[2020-01-09 13:56] LABS: Bacteria 1+ /hpf (None Seen); Mucous, Urine 1+ /hpf (<or=2+); Red Blood Cells-Urine 0-5 SEEN /hpf (0-5); White Blood Cells 50-100 SEEN /hpf (0-5)
[2020-01-09 14:12] LABS: Absolute Lymphocyte Count 3.38 X10^3/uL (0.83-4.51); Absolute Neutrophil Count 5.4 X10^3/uL (2.0-7.7); Eosinophil# 0.22 X10^3/uL; Eosinophils% 2.2 % (0-5); Hematocrit 46.9 % (37-47); Hemoglobin 15.1 g/dL (12.0-15.0); Lymphocyte # 3.38 X10^3/ul (4.0); Lymphocyte % 34.5 % (19-41); Mean Corp Hgb Conc 32.2 g/dL (32-36); Mean Corpuscular Hgb 26.2 pg (27.0-32.0); Mean Corpuscular Volume 81.4 fL (81-99); Mean Platelet Vol. 12.2 fl (6.2-12.0); Monocyte# 0.66 X10^3/uL; Monocyte% 6.7 % (0-10); NRBC Flagged by Analyzer 0 % (0-5); Neutrophil % 55.3 % (47-70); Platelet Count 298 K/mm3 (150-450); RBC Distribution Width CV 15.1 % (11.6-14.6); RBC Distribution Width SD 43.9 fl (35.1-43.9); Red Blood Count 5.76 M/mm3 (4.2-5.4); White Blood Count 9.8 K/mm3 (4.4-11.0)
[2020-01-09] MEDS: Ketorolac 30 MG/ML Syringe IV (14:14)
[2020-01-09] MEDS: Ondansetron 4 MG/2 ML Vial IV (14:14)
[2020-01-09] MEDS: 0.9% Normal Saline 1,000 ML 250 ML IV (14:14)
--- NOTE | 2020-01-09 15:30 | ED.DCSUM_ITS ---
- ER Visit Summary Date of Service: 01/09/20 Chief Complaint: Right flank pain History of Present Illness: The patient is a 29 F who has had right flank pain for 1 month. She describes sharp pain in the right flank area that does not radiate. She does have a history of kidney stones in the past with the last one being about 2 years ago. She has had some intermittent dysuria. She has had no hematuria. No fevers. Tylenol has been helping with the pain. She does feel little bit nauseous. Physical Examination: Vital signs reviewed. HEENT exam unremarkable. Heart is regular rate and rhythm without murmurs. Lungs are clear to auscultation. Abdomen is soft and nontender. Her back is tender in the CVA area, right greater than left. Extremities reveal no edema. Skin exam normal. Neurologic exam normal. Test Results: Normal white blood cell count. Urinalysis is positive for infection. Minimal blood. CAT scan is unremarkable Emergency Department Course and Treatment: Patient was given IV saline. It appears she has pyelonephritis. No kidney stones are seen. Patient will be treated with Bactrim orally. She will follow-up with her PCP and urologist Treatment Plan: [] Disposition: Discharge Impression: Pyelonephritis This note was generated with [employer] dictation software. It may contain incorrect words, spelling, and punctuation that were not noted in review of the chart prior to signing ED Disposition - Plan for ED Patient: Disposition: Home or Assisted Living Instructions: ED Pyelonephritis Female Adult Prescriptions: Smz/Tmp Ds [Bactrim Ds] 1 tab PO BID #28 tab Transmission Status: Pending to [id number] Referrals: Cristian Castillo MD [Primary Care Provider] -
[2020-01-09 16:07] LABS: Anion Gap 1 (5-15); BUN 9 mg/dL (7-18); BUN/Creat Ratio 12.2 RATIO (10-20); Calcium,Total 8.4 mg/dL (8.5-10.1); Chloride 109 mmol/L (98-107); Creatinine, Serum 0.74 mg/dL (0.55-1.02); EST Glomerular Filtration Rate 99 mL/min (>60); Est Glom Filt Rate - Afr Amer 120 mL/min (>60); Estimated Creatinine Clearance 89.52 ml/min; Glucose 79 mg/dL (74-106); Potassium 3.6 mmol/L (3.5-5.1); Sodium Level 141 mmol/L (136-145)
[2020-01-09] MEDS: Smz/Tmp Ds Tablet 1 TABLET PO (16:08)
[2020-01-09 16:09] VITALS: BP 142/90; PULSE 80; RESP 20; O2SAT 99
== END 2020-01-09 16:12 | disposition home or self-care (01) ==
PROVIDERS: Emergency Provider Emergency Medicine; PCP Internal Medicine
DX: N12 Tubulo-interstitial nephritis, not specified as acute or chronic (principal); Z87.442 Personal history of urinary calculi
CPT/HCPCS: 36415; 74176; 80048; 81001; 85025; 96361; 96374; 96375; 99285; J2405

== ENCOUNTER → 2020-01-19 | Outpatient (CLI) | payer MEDICAID, SELFPAY ==
[2020-01-09 13:00] VITALS: BMI 53.0
== END | disposition home or self-care (01) ==
LOC: MTDU 17:20
PROVIDERS: PCP Internal Medicine; Referring Provider Internal Medicine; Visit Provider Internal Medicine
DX: U07.1 COVID-19 (principal)
CPT/HCPCS: 87635; 94799; U0003

== ENCOUNTER 2020-01-26 09:03 | Emergency (ER) | payer MEDICAID, SELFPAY ==
[2020-01-26 09:03] VITALS: BP 179/96; PULSE 100; RESP 20; TEMP 35.7; O2SAT 93; BMI 54.4
--- NOTE | 2020-01-26 09:27 | EKG12_ITS ---
Test Reason : Blood Pressure : / mmHG Vent. Rate : 089 BPM Atrial Rate : 089 BPM P-R Int : 136 ms QRS Dur : 068 ms QT Int : 348 ms P-R-T Axes : 021 023 -09 degrees QTc Int : 423 ms Somatic / Motion Aritifact Normal sinus rhythm Normal ECG Confirmed by KIZZY URIARTE, LUIS FELIPE ([id number]), proposal editor KVNG GRAVES ([id number]) on 01/31/2020 10:14:33 AM Referred By: JOAQUIN Confirmed By:LUIS FELIPE DURAND MD
--- NOTE | 2020-01-26 09:29 | ED.VISSUMM ---
- ER Visit Summary Date of Service: 01/26/20 Chief Complaint: Shortness of breath and chest pain History of Present Illness: The patient is a 29 F who presents with shortness of breath and chest pain that began today. Patient states she was sitting on the couch reading when she noted some pain in her left upper chest. Patient states the pain was sharp and stabbing. Patient states the pain was worse with movement. Patient states she had some shortness of breath with this. Patient admits to a cough. Patient recently tested positive for COVID-19 on 01/19/2020. Patient admits to nausea but denies any vomiting. Patient states she was also recently treated for a kidney infection and finished her antibiotics but still is having some symptoms. Physical Examination: Vital signs are stable. Patient is afebrile. Patient is in no acute distress. Oral mucosa is pink and moist. Neck is supple. Trachea is midline. There is no JVD noted. Heart was regular rate and rhythm. Lungs are clear and equal bilaterally. Abdomen is soft. Bowel sounds are normal. There is no tenderness. There is no rebound or guarding noted. Skin is warm dry. Cranial nerves II through XII are intact. There are no focal motor or sensory deficits noted. Extremities are intact. There is no calf tenderness or edema. Test Results: EKG shows normal sinus rhythm with a rate of 89. There are no acute ST or T wave changes. Portable chest x-ray does not show any acute cardiopulmonary process. CBC and basic metabolic profile were obtained were within normal limits. Troponin was normal. Urinalysis shows leukocyte esterase of 500 with 10-25 white blood cells. Emergency Department Course and Treatment: Patient was advised of her findings. Patient states he did have a small episode of chest pain here in the emergency department that lasted a few minutes and then resolved. Patient was given a prescription for Cipro. Patient was instructed to follow-up with her primary care physician in 5 to 7 days for further evaluation of her chest pain. Patient understood and was agreeable with the plan. All questions were answered. Disposition: Discharge home Impression: 1. Urinary tract infection 2. Chest pain of uncertain etiology This note was generated with [employer] software. It may contain incorrect words, spelling, and punctuation that were not noted in review of the chart prior to signing ED Disposition - Plan for ED Patient: Disposition: Home or Assisted Living Diagnosis: Urinary tract infection, Chest pain of uncertain etiology Instructions: ED CYSTITIS Female Adult, ED Chest Pain Atypical Unkn Cause Prescriptions: Ciprofloxacin [Cipro] 500 mg PO BID #14 tab Prescription Printed Referrals: Cristian Castillo MD [Primary Care Provider] - 5-7 Days
[2020-01-26] MEDS: Aspirin 81 MG TAB.CHEW 324 MG PO (09:46)
[2020-01-26 09:47] VITALS: O2SAT 97
[2020-01-26 10:39] LABS: Absolute Lymphocyte Count 3.41 X10^3/uL (0.83-4.51); Absolute Neutrophil Count 2.8 X10^3/uL (2.0-7.7); Basophil# 0.07 X10^3/uL; Eosinophil# 0.16 X10^3/uL; Eosinophils% 2.3 % (0-5); Hematocrit 47.9 % (37-47); Hemoglobin 15.4 g/dL (12.0-15.0); Lymphocyte # 3.41 X10^3/ul (4.0); Lymphocyte % 48.7 % (19-41); Mean Corp Hgb Conc 32.2 g/dL (32-36); Mean Corpuscular Hgb 26.3 pg (27.0-32.0); Mean Corpuscular Volume 81.7 fL (81-99); Mean Platelet Vol. 11.3 fl (6.2-12.0); Monocyte# 0.58 X10^3/uL; Monocyte% 8.3 % (0-10); NRBC Flagged by Analyzer 0 % (0-5); Neutrophil # 2.75 X10^3/uL (2.7-7.7); Neutrophil % 39.3 % (47-70); Platelet Count 297 K/mm3 (150-450); RBC Distribution Width CV 15.9 % (11.6-14.6); RBC Distribution Width SD 46.2 fl (35.1-43.9); Red Blood Count 5.86 M/mm3 (4.2-5.4)
--- NOTE | 2020-01-26 10:40 | RAD_ITS ---
STUDY: X-RAY CHEST REASON FOR EXAM: Female, 29 years old. Covid positive, day 9, increased SOB, chest pain this am, chills TECHNIQUE: Single AP portable view of the chest. COMPARISON: Comparison is made with prior study dated 01/02/2018. FINDINGS: EKG electrodes are seen. The lungs are clear and expanded. There is no demonstrated pleural abnormality. Normal size heart. Normal mediastinum and mariella. Normal visualized pulmonary arteries. Normal visualized aortic arch and descending thoracic aorta. Normal visualized thoracic spine. Normal visualized ribs, clavicles, and shoulders. There is no demonstrated abnormality of the visualized soft tissue structures of the upper abdomen. RAD/Chest 1 View (Portable) IMPRESSION: Normal x-ray examination of the chest. Electronically Signed: Nato Ann, at 11:00 EDT , Service support ,
[2020-01-26 11:03] VITALS: BP 127/80; PULSE 75; RESP 15; O2SAT 94
[2020-01-26 11:04] LABS: ALB/GLOB Ratio 0.8 RATIO (0.9-2.4); AST(SGOT) 29 U/L (15-37); Alanine Aminotransfer ALT/SGPT 45 U/L (13-56); Albumin, Serum 3.3 g/dL (3.2-5.0); Alkaline Phosphatase 87 U/L (45-117); Anion Gap 7 (5-15); BUN 9 mg/dL (7-18); BUN/Creat Ratio 10.2 RATIO (10-20); Calcium,Total 8.9 mg/dL (8.5-10.1); Chloride 105 mmol/L (98-107); Creatinine, Serum 0.89 mg/dL (0.55-1.02); EST Glomerular Filtration Rate 80 mL/min (>60); Est Glom Filt Rate - Afr Amer 97 mL/min (>60); Estimated Creatinine Clearance 74.43 ml/min; Globulin 3.9 g/dL (2.2-4.2); Glucose 87 mg/dL (74-106); Potassium 3.4 mmol/L (3.5-5.1); Protein, Total 7.2 g/dL (6.4-8.2); Sodium Level 141 mmol/L (136-145)
[2020-01-26 12:53] VITALS: BP 179/111
[2020-01-26 13:22] LABS: Red Blood Cells-Urine 0 SEEN /hpf (0-5)
[2020-01-26 13:26] LABS: Color, Urine Yellow (Yellow); Glucose, Dipstick Normal (Normal); Ketone-Dipstick 5 mg/dl (Negative); Leukocyte Esterase-Dipstick 500 /ul (Negative); Nitrite-Dipstick Negative (Negative); Occult Blood-Urine Negative /ul (Negative); Protein-Dipstick 30 mg/dl (Negative); Urine Clarity Cloudy (Clear); Urine Urobilinogen 1 mg/dl (Normal)
[2020-01-26 13:27] LABS: Urine Bilirubin Dipstick 1 mg/dL (Negative)
[2020-01-26 13:47] LABS: Bacteria 1+ /hpf (None Seen); Mucous, Urine 1+ /hpf (<or=2+); Squamous Epithelial Cells - UA 0-5 SEEN /hpf (5-10); Transitional Epithelial - Ur 0-5 SEEN /hpf (0-5); White Blood Cells 10-25 SEEN /hpf (0-5)
[2020-01-26] MEDS: Ciprofloxacin 500 MG Tablet PO (14:49)
[2020-01-26 15:03] VITALS: BP 127/80; PULSE 84; RESP 16; O2SAT 100
== END 2020-01-26 15:06 | disposition home or self-care (01) ==
PROVIDERS: Emergency Provider Emergency Medicine; PCP Internal Medicine
DX: N39.0 Urinary tract infection, site not specified (principal); R07.9 Chest pain, unspecified; E66.9 Obesity, unspecified; F32.9 Major depressive disorder, single episode, unspecified; Z79.899 Other long term (current) drug therapy
CPT/HCPCS: 71045; 80053; 81001; 84484; 85025; 93005; 99285; A4216

== ENCOUNTER → 2020-08-12 20:02 | Outpatient (CLI) | payer MEDICAID, SELFPAY | PROVIDERS: PCP Internal Medicine | DX: R06.83 Snoring (principal); R53.83 Other fatigue; R06.00 Dyspnea, unspecified | CPT/HCPCS: 95810 ==

== ENCOUNTER 2021-02-17 14:53 | Emergency (ER) | payer MEDICAID, SELFPAY ==
[2021-02-17 14:54] VITALS: BP 127/92; PULSE 105; RESP 18; TEMP 36.1; O2SAT 96; BMI 53.0
[2021-02-17 15:21] LABS: Mucous, Urine 0 SEEN /hpf (<or=2+); Squamous Epithelial Cells - UA 0 SEEN /hpf (5-10)
[2021-02-17 15:25] LABS: Color, Urine Red (Yellow); Glucose, Dipstick Normal (Normal); Ketone-Dipstick 15 mg/dl (Negative); Leukocyte Esterase-Dipstick 500 /ul (Negative); Nitrite-Dipstick Positive (Negative); Occult Blood-Urine 250 /ul (Negative); Protein-Dipstick 500 mg/dl (Negative); Urine Bilirubin Dipstick Negative (Negative); Urine Clarity Cloudy (Clear); Urine Urobilinogen Normal (Normal)
[2021-02-17 15:39] LABS: White Blood Cells >100 SEEN /hpf (0-5)
[2021-02-17 15:45] LABS: Bacteria 2+ /hpf (None Seen); Red Blood Cells-Urine 10-25 SEEN /hpf (0-5)
[2021-02-17 16:24] LABS: Internal QC Validated? YES +Cl - CLEAR BKGD; Pregnancy, Urine Negative Negative
--- NOTE | 2021-02-17 16:42 | CT_ITS ---
STUDY: CT ABDOMEN AND PELVIS WITHOUT CONTRAST REASON FOR EXAM: Female, 30 years old. Kidney Stone RADIATION DOSAGE (If Supplied By Facility): CTDIvol = ( 23.45 ) mGy, DLP = ( 1224.60 ) mGycm TECHNIQUE: Transaxial images were obtained from the dome of the diaphragm to the symphysis pubis without oral contrast, and without intravenous contrast. Sagittal and coronal images were reconstructed. Individualized dose optimization techniques were used for this CT. COMPARISON: 01/09/2020 FINDINGS: The visualized lung bases are unremarkable. The visualized portions of the heart are within normal limits. Normal liver. The gallbladder is contracted. Normal spleen. Normal pancreas. Normal bilateral adrenal glands. Normal right kidney. Normal left kidney. Normal visualized stomach. Normal small intestine. Normal colon. The appendix is visualized and appears normal. Normal abdominal aorta. Normal inferior vena cava. Normal retroperitoneum. Normal urinary bladder. Normal abdominal wall. Normal osseous structures. CT/Abdomen/Pelvis without Cont IMPRESSION: Normal unenhanced CT of the abdomen and pelvis. Electronically Signed: Reggie Lorenzana MD at 17:25 EDT Tel , Service support ,
--- NOTE | 2021-02-17 16:43 | ED.VIS.FEGU ---
HPI HPI - Female History of Present Illness Chief Complaint: Complaint Narrative Narrative: 30-year-old female presenting with dysuria. She states she went to the urgent care this morning and was diagnosed with UTI and took Macrobid. Now she feels like she cannot void. Patient states that she feels pressure like something is obstructing her urethra. She admits to hematuria. Patient also has a history of kidney stones in the past. She complains of bilateral lower back pain. She states she is not nauseous currently. She does state that she does not have a urologist in and that she does not believe she is ever passed a kidney stone. She also states she is never had to have a procedure to remove a kidney stone. She feels that they dissolve before they can pass. PFSH PFSH Home Medications drospirenone-ethinyl estradiol [Adele] 1 tab PO DAILY 04/23/16 [History Last Taken 01/09/20] fluoxetine 20 mg PO DAILY 12/14/17 [History Last Taken 01/09/20] ciprofloxacin HCl 500 mg PO BID #14 tab 01/26/20 [Rx Last Taken Unknown] phenazopyridine [Pyridium] 100 mg PO TID PRN #6 tab 02/17/21 [Rx Last Taken Unknown] sulfamethoxazole-trimethoprim [Bactrim DS] 1 tab PO BID 10 Days #20 tab 02/17/21 [Rx Last Taken Unknown] Allergy/AdvReac Type Severity Reaction Status Date / Time morphine Allergy Intermediate Hives Verified 02/17/21 14:56 blue dye AdvReac Diarrhea Verified 02/17/21 14:56 latex AdvReac Other Verified 02/17/21 14:56 Social History Smoking Status: Former smoker ROS ROS ED Constitutional Constitutional ED: Denies chills or fever(s) Eyes Eyes: Denies blurry vision or change in vision ENT ENT ED: Denies rhinorrhea or sore throat Cardiovascular Cardiovascular: Denies chest pain or palpitations Respiratory/Chest Respiratory/Chest: Denies cough or dyspnea Gastrointestinal Gastrointestinal: Denies nausea or vomiting Genitourinary Genitourinary ED: Reports dysuria, hematuria, urinary frequency and other Details: Urethral pressure. Inability to void. Musculoskeletal Musculoskeletal: Reports other Details: Bilateral lower back pain. ; Denies arthralgias or myalgias Integumentary Denies Abrasions or rash Neurologic Neurologic: Denies headache(s) EXAM Physical Exam Const Vital Signs: 02/17/21 14:54 Temperature 97 F L Temperature Source Temporal Pulse Rate 105 H Respiratory Rate 18 Blood Pressure 127/92 H Blood Pressure Mean 103 Pulse Ox 96 Oxygen Delivery Method Room Air Positive well nourished General Appearance ED: NAD; Negative for pallor HEENT Reports moist mucous membranes Negative for trauma Eyes PERRL and EOMs intact bilaterally Resp normal respiratory effort and clear to auscultation bilaterally Cardio regular rate and regular rhythm GI GI Narrative: Mild suprapubic pressure. Narrative: Bilateral CVA tenderness. Neuro oriented x3 Sensorium / Orientation: alert and oriented to person Psych mental status grossly normal Skin General Skin Exam: Negative for jaundice or pallor MDM MDM MDM Narrative Medical decision making narrative: Patient presenting with dysuria and found to have UTI. She is not had a fever, nausea, vomiting. She does complain of some bilateral CVA tenderness which is mild. She is concerned she might have a kidney stone as well. Patient has a leukocytosis of 14.3. Renal function electrolytes was normal. CT of the abdomen pelvis is negative for kidney stones or inflammatory changes of the kidneys. Given the patient CVA tenderness I will start her on Bactrim pyelonephritis. Urine culture was sent. Patient given return precautions. Impression: Pyelonephritis Lab Data Labs: Laboratory Results - last 24 hr 02/17/21 02/17/21 02/17/21 15:20 15:20 16:51 WBC 14.3 H RBC 5.86 H Hgb 17.1 H Hct 51.3 H MCV 87.5 MCH 29.2 MCHC 33.3 RDW Std Deviation 42.8 RDW Coeff of Anne 13.3 Plt Count 295 MPV 11.6 Immature Gran % (Auto) 0.400 Neut % (Auto) 74.4 H Lymph % (Auto) 17.4 L [place] % (Auto) 5.5 Eos % (Auto) 1.5 Baso % (Auto) 0.8 Absolute Neuts (auto) 10.7 H Absolute Lymphs (auto) 2.50 Nucleated RBC % 0 Sodium Potassium Chloride Carbon Dioxide Anion Gap BUN Creatinine Estim Creat Clear Calc Est GFR (MDRD) Af Amer Est GFR (MDRD) Non-Af BUN/Creatinine Ratio Glucose Calcium Urine Color Red Cancelled Urine Clarity Cloudy Cancelled Urine pH 5.0 Cancelled Ur Specific [place] 1.020 Cancelled U Specif Grav (Refrac) Cancelled Urine Protein 500 H Cancelled Urine Glucose (UA) Normal Cancelled Urine Ketones 15 H Cancelled Urine Occult Blood 250 H Cancelled Urine Nitrite Positive H Cancelled Urine Bilirubin Negative Cancelled Urine Urobilinogen Normal Cancelled Ur Leukocyte Esterase 500 H Cancelled Urine RBC 10-25 SEEN Cancelled Urine WBC >100 SEEN Cancelled Ur Squamous Epith Cells 0 SEEN Cancelled Ur Transition Epith Cell Cancelled Ur Renal Epithelial Cell Cancelled Calcium Oxalate Crystal Cancelled Uric Acid Crystals Cancelled Triple Phos Crystals Cancelled Other Crystals Cancelled Amorphous Sediment Cancelled Urine Bacteria 2+ Cancelled Hyaline Casts Cancelled Fine Granular Casts Cancelled Coarse Granular Casts Cancelled Waxy Casts Cancelled RBC Casts Cancelled WBC Casts Cancelled Urine Mucus 0 SEEN Cancelled Urine Trichomonas Cancelled Urine Yeast Cancelled Urine Test Negative 02/17/21 16:51 WBC RBC Hgb Hct MCV MCH MCHC RDW Std Deviation RDW Coeff of Anne Plt Count MPV Immature Gran % (Auto) Neut % (Auto) Lymph % (Auto) [place] % (Auto) Eos % (Auto) Baso % (Auto) Absolute Neuts (auto) Absolute Lymphs (auto) Nucleated RBC % Sodium 137 Potassium 3.8 Chloride 102 Carbon Dioxide 29.0 Anion Gap 6 BUN 12 Creatinine 0.90 Estim Creat Clear Calc 72.95 Est GFR (MDRD) Af Amer 95 Est GFR (MDRD) Non-Af 78 BUN/Creatinine Ratio 13.3 Glucose 88 Calcium 9.7 Urine Color Urine Clarity Urine pH Ur Specific [place] U Specif Grav (Refrac) Urine Protein Urine Glucose (UA) Urine Ketones Urine Occult Blood Urine Nitrite Urine Bilirubin Urine Urobilinogen Ur Leukocyte Esterase Urine RBC Urine WBC Ur Squamous Epith Cells Ur Transition Epith Cell Ur Renal Epithelial Cell Calcium Oxalate Crystal Uric Acid Crystals Triple Phos Crystals Other Crystals Amorphous Sediment Urine Bacteria Hyaline Casts Fine Granular Casts Coarse Granular Casts Waxy Casts RBC Casts WBC Casts Urine Mucus Urine Trichomonas Urine Yeast Urine Test Radiography Diagnostic Testing: Radiology Impression Abdomen/Pelvis CT 02/17/21 16:42 IMPRESSION: Normal unenhanced CT of the abdomen and pelvis. Electronically Signed: Reggie Lorenzana MD at 17:25 EDT Tel , Service support , Discharge Plan Triage Chief Complaint: Complaint ED Provider: Maurizio Molina Dx/Rx/DC Orders Instructions: ED Pyelonephritis, Female (Adult) Prescriptions: New sulfamethoxazole-trimethoprim [Bactrim DS] 800-160 mg tablet 1 tab PO BID 10 Days Qty: 20 RF: 0 phenazopyridine [Pyridium] 100 mg tablet 100 mg PO TID PRN (Reason: pain) Qty: 6 RF: 0 No Action drospirenone-ethinyl estradiol [Adele] 1 EACH tablet 1 tab PO DAILY RF: 0 fluoxetine 20 MG capsule 20 mg PO DAILY RF: 0 ciprofloxacin HCl 500 MG tablet 500 mg PO BID Qty: 14 RF: 0 Primary Care Provider: Cristian Castillo Referrals: Cristian Castillo MD [Primary Care Provider] - Disposition Disposition: Home, Self Care
[2021-02-17 17:00] LABS: Absolute Neutrophil Count 10.7 X10^3/uL (2.0-7.7); Basophil# 0.11 X10^3/uL; Basophil% 0.8 % (0-1); Eosinophil# 0.21 X10^3/uL; Eosinophils% 1.5 % (0-5); Hematocrit 51.3 % (37-47); Hemoglobin 17.1 g/dL (12.0-15.0); Lymphocyte % 17.4 % (19-41); Mean Corp Hgb Conc 33.3 g/dL (32-36); Mean Corpuscular Hgb 29.2 pg (27.0-32.0); Mean Corpuscular Volume 87.5 fL (81-99); Mean Platelet Vol. 11.6 fl (6.2-12.0); Monocyte# 0.79 X10^3/uL; Monocyte% 5.5 % (0-10); NRBC Flagged by Analyzer 0 % (0-5); Neutrophil # 10.66 X10^3/uL (2.7-7.7); Neutrophil % 74.4 % (47-70); Platelet Count 295 K/mm3 (150-450); RBC Distribution Width CV 13.3 % (11.6-14.6); RBC Distribution Width SD 42.8 fl (35.1-43.9); Red Blood Count 5.86 M/mm3 (4.2-5.4); White Blood Count 14.3 K/mm3 (4.4-11.0)
[2021-02-17 17:15] LABS: Anion Gap 6 (5-15); BUN 12 mg/dL (7-18); BUN/Creat Ratio 13.3 RATIO (10-20); Calcium,Total 9.7 mg/dL (8.5-10.1); Chloride 102 mmol/L (98-107); EST Glomerular Filtration Rate 78 mL/min (>60); Est Glom Filt Rate - Afr Amer 95 mL/min (>60); Estimated Creatinine Clearance 72.95 ml/min; Glucose 88 mg/dL (74-106); Potassium 3.8 mmol/L (3.5-5.1); Sodium Level 137 mmol/L (136-145)
[2021-02-17] MEDS: Phenazopyridine 95 MG Tablet 190 MG PO (18:45)
[2021-02-17] MEDS: Smz/Tmp Ds Tablet 1 TABLET PO (18:45)
[2021-02-17 18:47] VITALS: PULSE 87; RESP 16; O2SAT 97
== END 2021-02-17 18:49 | disposition home or self-care (01) ==
PROVIDERS: Emergency Provider Student in an Organized Health Care Education/Training Program; PCP Internal Medicine
DX: N12 Tubulo-interstitial nephritis, not specified as acute or chronic (principal); Z87.891 Personal history of nicotine dependence
CPT/HCPCS: 74176; 80048; 81001; 81025; 85025; 87086; 87088; 87186; 99283; A4216

== ENCOUNTER 2023-02-28 00:33 | Emergency (ER) | payer MEDICAID, SELFPAY ==
[2023-02-28 00:36] VITALS: BP 140/84; PULSE 133; RESP 15; TEMP 37.5; O2SAT 96; BMI 37.7
--- NOTE | 2023-02-28 00:43 | EKG12_ITS ---
Test Reason : DYSRHYTHMIA Blood Pressure : / mmHG Vent. Rate : 127 BPM Atrial Rate : 127 BPM P-R Int : 144 ms QRS Dur : 076 ms QT Int : 298 ms P-R-T Axes : 050 037 012 degrees QTc Int : 433 ms Sinus tachycardia Otherwise normal ECG Confirmed by ARACELIS URIARTE, RADHA ([id number]), newspaper editor KVNG GRAVES ([id number]) on 03/02/2023 11:41:02 AM Referred By: CONSTANZA Confirmed By:RADHA HSU MD
[2023-02-28] MEDS: 0.9% Normal Saline (1000mL) 1,000 ML 1000 ML IV (00:54)
[2023-02-28 00:55] VITALS: O2SAT 96
[2023-02-28 01:02] LABS: Absolute Lymphocyte Count 2.08 X10^3/uL (0.83-4.51); Absolute Neutrophil Count 11.4 X10^3/uL (2.0-7.7); Basophil# 0.13 X10^3/uL; Basophil% 0.9 % (0-1); Eosinophil# 0.04 X10^3/uL; Eosinophils% 0.3 % (0-5); Hematocrit 48.4 % (37-47); Hemoglobin 16.3 g/dL (12.0-15.0); Lymphocyte # 2.08 X10^3/ul (0.83-4.51); Lymphocyte % 14.4 % (19-41); Mean Corp Hgb Conc 33.7 g/dL (32-36); Mean Corpuscular Hgb 29.6 pg (27.0-32.0); Mean Corpuscular Volume 87.8 fL (81-99); Mean Platelet Vol. 11.3 fl (6.2-12.0); Monocyte# 0.72 X10^3/uL; NRBC Flagged by Analyzer 0 % (0-5); Neutrophil # 11.42 X10^3/uL (2.7-7.7); Neutrophil % 78.8 % (47-70); Platelet Count 266 K/mm3 (150-450); RBC Distribution Width CV 13.2 % (11.6-14.6); RBC Distribution Width SD 42.3 fl (35.1-43.9); Red Blood Count 5.51 M/mm3 (4.2-5.4); White Blood Count 14.5 K/mm3 (4.4-11.0)
--- NOTE | 2023-02-28 01:09 | EDS_ITS ---
HPI History of Present Illness Chief Complaint: Substance Abuse Narrative Narrative: 32-year-old female presenting for evaluation after eating 100 mg THC gummy at about 8 PM. She states she feels like she cannot move. She feels really high. She states she feels shaky. She has some nausea but has not been vomiting. She states he is taken hCG Gummies, but the dose was much less. She states she is never taken 100 mg before but thought she could handle it. PFSH PFSH Medical History no medical history Home Medications drospirenone 3 mg-ethinyl estradiol 0.03 mg tablet (Adele) 1 tab PO DAILY 04/23/16 [History Last Taken 01/09/20] fluoxetine 20 mg capsule 20 mg PO DAILY 12/14/17 [History Last Taken 01/09/20] ciprofloxacin HCl 500 mg tablet 500 mg PO BID #14 tabs 01/26/20 [Rx Last Taken Unknown] phenazopyridine 100 mg tablet (Pyridium) 100 mg PO TID PRN pain 6 doses #6 tabs 02/17/21 [Rx Last Taken Unknown] sulfamethoxazole 800 mg-trimethoprim 160 mg tablet (Bactrim DS) 1 tab PO BID 10 days #20 tabs 02/17/21 [Rx Last Taken Unknown] ondansetron 4 mg disintegrating tablet 4 mg PO Q8H PRN PRN Nausea #10 tabs 02/28/23 [Rx Last Taken Unknown] Allergy/AdvReac Type Severity Reaction Status Date / Time morphine Allergy Intermediate Hives Verified 02/17/21 14:56 blue dye AdvReac Diarrhea Verified 02/17/21 14:56 latex AdvReac Other Verified 02/17/21 14:56 Surgical History no surgical history Social History Smoking Status: Former smoker ROS ROS ED Constitutional Constitutional ED: Denies chills, fever(s) or sweats Eyes Eyes: Denies blurry vision or change in vision ENT ENT ED: Denies ear pain or sore throat Cardiovascular Cardiovascular: Denies chest pain, palpitations or racing heartbeat Respiratory/Chest Respiratory/Chest: Denies cough, dyspnea or sputum Gastrointestinal Gastrointestinal: Reports nausea; Denies abdominal pain, constipation, diarrhea or vomiting Genitourinary Genitourinary ED: Denies dysuria, hematuria or urinary frequency Musculoskeletal Musculoskeletal: Denies arthralgias, myalgias or neck pain Integumentary Denies abscess, Abrasions or rash Neurologic Neurologic: Denies headache(s), paresthesias or weakness Psychiatric Psychiatric: Denies anxiety, depression, suicidal ideation or suicidal thoughts Endocrine Endocrinology: Denies polydipsia or polyuria EXAM Physical Exam Const Vital Signs: 02/28/23 00:36 02/28/23 00:55 Temperature 99.5 F H Temperature Source Oral Pulse Rate 133 H Respiratory Rate 15 Blood Pressure 140/84 H Blood Pressure Mean 102 Pulse Ox 96 96 Oxygen Delivery Method Room Air Room Air Positive well nourished General Appearance ED: Negative for pallor HEENT Reports moist mucous membranes atraumatic Eyes PERRL and EOMs intact bilaterally Lymph Lymphatic: no lymphadenopathy noted Chest Wall inspection of chest normal and palpation of chest normal Resp normal respiratory effort and clear to auscultation bilaterally Auscultation: Negative for rales, rhonchi or wheezes Cardio regular rhythm Rate: tachycardic GI soft to palpation Palpation: Negative for tender, guarding or rigid Neuro oriented x3, CN's II-XII intact bilaterally and no sensory deficits noted Sensorium / Orientation: alert Motor Exam: strength 5/5 throughout Psych mental status grossly normal Skin General Skin Exam: Negative for jaundice or pallor MDM MDM MDM Narrative Medical decision making narrative: 32-year-old female presenting with nausea and weakness after eating 100 mg CBD gummy. Her heart rate is 133 which is abnormal. She states he is not on any other drugs. We will obtain a CBC to assess white blood cell count, hemoglobin, platelets. BMP to assess renal function and electrolytes. Patient was given a liter of normal saline. We will obtain an EKG to make sure to sinus rhythm and high-sensitivity troponin make sure there is no ischemic change. EKG shows a sinus tachycardia at 127 bpm on my interpretation without sign of ischemic change or ectopy. CBC shows slight leukocytosis at 14.5 however this is similar to previous. Hemoglobin stable at 16.3. Previously was over 17. Creatinine is elevated at 1.10 and the patient was already given IV fluids. GFR normal. High-sensitivity troponin is 4. Chest x-ray on my interpretation shows no acute process. Patient was ambulated to the restroom and I feel this point she can be discharged home. Patient will be given a prescription for Zofran. Recommended that she limit the use of edibles. Discharged stable condition. Impression: 1. Cannabinoid abuse 2. Nausea 3. Tachycardia Lab Data Attestation: I reviewed the patient's lab results. Labs: Laboratory Results - last 24 hr 02/28/23 00:55 WBC 14.5 H RBC 5.51 H Hgb 16.3 H Hct 48.4 H MCV 87.8 MCH 29.6 MCHC 33.7 RDW Std Deviation 42.3 RDW Coeff of Anne 13.2 Plt Count 266 MPV 11.3 Immature Gran % (Auto) 0.600 Neut % (Auto) 78.8 H Lymph % (Auto) 14.4 L [place] % (Auto) 5.0 Eos % (Auto) 0.3 Baso % (Auto) 0.9 Absolute Neuts (auto) 11.4 H Absolute Lymphs (auto) 2.08 Nucleated RBC % 0 Sodium 136 Potassium 3.5 Chloride 103 Carbon Dioxide 27.0 Anion Gap 6 BUN 14 Creatinine 1.10 H Estim Creat Clear Calc 61.30 Est GFR (MDRD) Af Amer 74 Est GFR (MDRD) Non-Af 61 BUN/Creatinine Ratio 12.7 Glucose 178 H Calcium 9.0 Troponin I High Sens 4 Radiography Diagnostic Testing: Clinical Impression(s) from Imaging Studies Chest X-Ray 02/28/23 01:20 IMPRESSION: No radiographic evidence of acute cardiopulmonary disease. Electronically Signed: Terry Bazan MD at 2:22 EDT , Discharge Plan Triage Chief Complaint: Substance Abuse ED Provider: Maurizio Molina Dx/Rx/DC Orders Instructions: Understanding Marijuana Abuse Prescriptions: New ondansetron 4 mg tablet,disintegrating 4 mg PO Q8H PRN PRN (Reason: Nausea) Qty: 10 0RF No Action drospirenone-ethinyl estradiol [Adele] 1 EACH tablet 1 tab PO DAILY Patient Comments: fluoxetine 20 MG capsule 20 mg PO DAILY Patient Comments: Take 1 capsule by mouth once daily. ciprofloxacin HCl 500 MG tablet 500 mg PO BID Qty: 14 0RF sulfamethoxazole-trimethoprim [Bactrim DS] 800-160 mg tablet 1 tab PO BID 10 Days Qty: 20 0RF phenazopyridine [Pyridium] 100 mg tablet 100 mg PO TID PRN (Reason: pain) Qty: 6 0RF Primary Care Provider: Cristian Castillo Referrals: Cristian Castillo MD [Primary Care Provider] - Disposition Disposition: Home, Self Care
--- NOTE | 2023-02-28 01:20 | RAD_ITS ---
INDICATION: chest pain EXAMINATION/TECHNIQUE: X-RAY - XR Chest 1 View COMPARISON: Chest x-ray from 01/26/2020 FINDINGS: LINES/DEVICES: None. LUNGS: No pulmonary edema or focal airspace consolidation. No sizable pleural effusion. No pneumothorax detected. Mildly elevated right hemidiaphragm. MEDIASTINUM AND CARDIOVASCULAR STRUCTURES: Heart size within normal limits. Mediastinal contours unremarkable. BONES AND SOFT TISSUES: No acute findings. RAD/Chest 1 View (Portable) IMPRESSION: No radiographic evidence of acute cardiopulmonary disease. Electronically Signed: Terry Bazan MD at 2:22 EDT ,
[2023-02-28] MEDS: Ondansetron 4 MG/2 ML Vial IV (01:25)
[2023-02-28 01:27] LABS: Anion Gap 6 (5-15); BUN 14 mg/dL (7-18); BUN/Creat Ratio 12.7 RATIO (10-20); Chloride 103 mmol/L (98-107); EST Glomerular Filtration Rate 61 mL/min (>60); Est Glom Filt Rate - Afr Amer 74 mL/min (>60); Glucose 178 mg/dL (74-106); Potassium 3.5 mmol/L (3.5-5.1); Sodium Level 136 mmol/L (136-145); Troponin-I HS 4 pg/mL (3.0-54.0)
[2023-02-28 04:07] VITALS: BP 122/68; PULSE 72; RESP 18; O2SAT 97
== END 2023-02-28 04:10 | disposition home or self-care (01) ==
PROVIDERS: Emergency Provider Student in an Organized Health Care Education/Training Program; PCP Internal Medicine; Visit Provider Student in an Organized Health Care Education/Training Program
DX: F12.10 Cannabis abuse, uncomplicated (principal); Z87.891 Personal history of nicotine dependence
CPT/HCPCS: 71045; 80048; 84484; 85025; 93005; 96361; 96374; 99285; J7030; J2405

== ENCOUNTER 2023-09-19 16:47 | Emergency (ER) | payer MEDICAID, SELFPAY ==
[2023-09-19 16:49] VITALS: BP 107/69; PULSE 98; RESP 15; TEMP 36.6; O2SAT 97; BMI 56.1
[2023-09-19 16:51] VITALS: BP 107/69; PULSE 89; RESP 16; TEMP 36.6; O2SAT 98
--- NOTE | 2023-09-19 17:44 | ED.VIS.DENTA ---
HPI <JIM Wyatt - Last Filed: 09/19/23 18:52> History of Present Illness Chief Complaint: Dental Narrative Narrative: Patient presenting today due to dental pain that they have had over the past 2 to 3 weeks. Patient reports that on Wednesday they went to the dentist and had a root canal of one of the maxillary right molars. Now patient is having pain in the mandibular right first molar. Patient started Augmentin on Wednesday. They report that they cannot wait until tomorrow to see the dentist due to pain. Patient denies any fevers or chills. PFSH <JIM Wyatt - Last Filed: 09/19/23 18:52> PFSH Home Medications drospirenone 3 mg-ethinyl estradiol 0.03 mg tablet (Adele) 1 tab PO DAILY 04/23/16 [History Last Taken 01/09/20] fluoxetine 20 mg capsule 20 mg PO DAILY 12/14/17 [History Last Taken 01/09/20] ciprofloxacin HCl 500 mg tablet 500 mg PO BID #14 tabs 01/26/20 [Rx Last Taken Unknown] phenazopyridine 100 mg tablet (Pyridium) 100 mg PO TID PRN pain 6 doses #6 tabs 02/17/21 [Rx Last Taken Unknown] sulfamethoxazole 800 mg-trimethoprim 160 mg tablet (Bactrim DS) 1 tab PO BID 10 days #20 tabs 02/17/21 [Rx Last Taken Unknown] ondansetron 4 mg disintegrating tablet 4 mg PO Q8H PRN PRN Nausea #10 tabs 02/28/23 [Rx Last Taken Unknown] hydrocodone-acetaminophen 5-325mg 5mg-325mg 1 tab PO Q6H PRN PRN Pain 2 days #5 TABLETS 09/19/23 [Rx Last Taken Unknown] Allergy/AdvReac Type Severity Reaction Status Date / Time morphine Allergy Intermediate Hives Verified 09/19/23 16:51 blue dye AdvReac Diarrhea Verified 09/19/23 16:51 latex AdvReac Other Verified 09/19/23 16:51 Social History Smoking Status: Former smoker ROS <JIM Wyatt - Last Filed: 09/19/23 18:52> ROS ED Constitutional Constitutional ED: Denies chills or fever(s) ENT ENT ED: Reports dental pain Cardiovascular Cardiovascular: Denies chest pain Respiratory/Chest Respiratory/Chest: Denies cough or dyspnea Gastrointestinal Gastrointestinal: Denies abdominal pain, nausea or vomiting Musculoskeletal Musculoskeletal: Denies arthralgias or myalgias Integumentary Denies rash Neurologic Neurologic: Denies weakness EXAM <JIM Wyatt - Last Filed: 09/19/23 18:52> Physical Exam Const Vital Signs: 09/19/23 16:49 09/19/23 16:51 09/19/23 17:56 Temperature 98 F 98 F 97.9 F Temperature Source Temporal Temporal Pulse Rate 98 89 70 Respiratory Rate 15 16 18 Blood Pressure 107/69 107/69 110/69 Blood Pressure Mean 81 81 82 Pulse Ox 97 98 100 Oxygen Delivery Method Room Air Room Air Positive well nourished, well developed and no apparent distress General Appearance ED: well developed HEENT Reports normocephalic and head/scalp atraumatic HEENT Narrative: Multiple dental caries, pain to the right mandibular first molar, no dental abscess, no trismus, no drooling Mouth ED: Yes moist mucous membranes normal Throat: posterior oropharynx normal Eyes PERRL and EOMs intact bilaterally Neck full ROM and supple Chest Wall inspection of chest normal Resp normal respiratory effort and clear to auscultation bilaterally Cardio regular rate and regular rhythm GI soft to palpation, non-tender, non-distended and no masses Back/Spine normal ROM and normal to inspection Extremity normal to inspection and full ROM Neuro oriented x3, CN's II-XII intact bilaterally, moves all extremities, no focal motor deficits and no sensory deficits noted Sensorium / Orientation: awake and alert Psych mental status grossly normal and thought process normal Skin no rashes or lesions noted and no wounds <Dr. Anderson Villafana MD - Last Filed: 09/19/23 19:04> Physical Exam Const Vital Signs: 09/19/23 16:49 09/19/23 16:51 09/19/23 17:56 Temperature 98 F 98 F 97.9 F Temperature Source Temporal Temporal Pulse Rate 98 89 70 Respiratory Rate 15 16 18 Blood Pressure 107/69 107/69 110/69 Blood Pressure Mean 81 81 82 Pulse Ox 97 98 100 Oxygen Delivery Method Room Air Room Air MDM <JIM Wyatt - Last Filed: 09/19/23 18:52> [facility] Narrative Medical decision making narrative: Patient presenting due to pain to the right mandibular first molar. Symptoms consistent with reversible pulpitis. Recent canal to one of the maxillary right molars. No signs of Ludewig's angina, no dental abscess. Patient is already on antibiotics. They report that they are able to get into the dentist fairly easily, have encouraged that patient call tomorrow to make an appointment. Will give a short course of [place] with first dose here to help with pain as patient is already taking ibuprofen and Tylenol with minimal relief. Patient be discharged in stable condition and is comfortable with plan. <Dr. Anderson Villafana MD - Last Filed: 09/19/23 19:04> [facility] Narrative Medical decision making narrative: Patient presenting due to pain to the right mandibular first molar. Symptoms consistent with reversible pulpitis. Recent canal to one of the maxillary right molars. No signs of Ludewig's angina, no dental abscess. Patient is already on antibiotics. They report that they are able to get into the dentist fairly easily, have encouraged that patient call tomorrow to make an appointment. Will give a short course of Bodfish with first dose here to help with pain as patient is already taking ibuprofen and Tylenol with minimal relief. Patient be discharged in stable condition and is comfortable with plan. I have personally performed a face to face assessment of the patient and have reviewed the NELIDA Note. I performed a substantive portion of the visit including all aspects of the following. My borrero findings include: History is remarkable for dental pain. Patient localizes pain to tooth #30. Patient does have sensitivity to hot liquids. Patient denies fever, chills night sweats. Patient denies inability to open or close his mouth completely. Patient denies history medic fever, heart murmur mitral valve prolapse or being on immunosuppressive meds. Patient denies facial redness or swelling. Patient denies change in voice. Exam is remarkable for dental cavity tooth #30. There is no evidence of periodontal abscess. There is discomfort with tapping of the tooth. There is no trismus. There is no evidence of Ludewig's angina. Trachea is midline. There is no inspiratory stridor. Heart is regular. Rate is normal. There is no murmur, gallop or rub. Lungs are clear auscultation. Cranials 2 through 12 are intact. Alert orient x 3. Medical Decision Making opiate analgesia and contact dentist since pain will be persistent due to the fact that he has symptomatic irreversible pulpitis. Other additions or changes: [None] Discharge Plan Triage Chief Complaint: Dental ED Midlevel Provider: Diane Blake ED Provider: Anderson Villafana Dx/Rx/DC Orders Clinical Impression: Pain due to dental caries, Dental caries into pulp, Symptomatic irreversible pulpitis Instructions: ED Dental Pain Prescriptions: New hydrocodone-acetaminophen 5-325 mg tablet 1 tab PO Q6H PRN PRN (Reason: Pain) 2 Days Qty: 5 0RF No Action drospirenone-ethinyl estradiol [Adele] 1 EACH tablet 1 tab PO DAILY Patient Comments: fluoxetine 20 MG capsule 20 mg PO DAILY Patient Comments: Take 1 capsule by mouth once daily. ciprofloxacin HCl 500 MG tablet 500 mg PO BID Qty: 14 0RF sulfamethoxazole-trimethoprim [Bactrim DS] 800-160 mg tablet 1 tab PO BID 10 Days Qty: 20 0RF phenazopyridine [Pyridium] 100 mg tablet 100 mg PO TID PRN (Reason: pain) Qty: 6 0RF ondansetron 4 mg tablet,disintegrating 4 mg PO Q8H PRN PRN (Reason: Nausea) Qty: 10 0RF Primary Care Provider: Cristian Castillo Referrals: Cristian Castillo MD [Primary Care Provider] - Activity Restrictions/Additional Instructions: Please follow-up with the dentist and return for any worsening of your symptoms. Disposition Disposition: Home, Self Care Discharge Date/Time: 09/19/23 17:57
[2023-09-19] MEDS: HYDROcodone Bitartrate/Apap 5/325 Tablet PO (17:52)
[2023-09-19 17:56] VITALS: BP 110/69; PULSE 70; RESP 18; TEMP 36.6; O2SAT 100
== END 2023-09-19 17:57 | disposition home or self-care (01) ==
PROVIDERS: Emergency Provider Emergency Medicine; PCP Internal Medicine; Visit Provider Emergency Medicine
DX: K02.9 Dental caries, unspecified (principal); K04.02 Irreversible pulpitis; Z87.891 Personal history of nicotine dependence
CPT/HCPCS: 99282

== ENCOUNTER 2023-11-29 12:00 | Emergency (ER) | payer MEDICAID, SELFPAY ==
[2023-11-29 12:01] VITALS: BP 128/83; PULSE 85; RESP 15; TEMP 36.8; O2SAT 95; O2SAT 97; BMI 26.9
--- NOTE | 2023-11-29 12:48 | RAD_ITS ---
STUDY: X-RAY CHEST REASON FOR EXAM: Female, 33 years old. CAD TECHNIQUE: Single AP portable view of the chest. COMPARISON: None. FINDINGS: EKG electrodes are seen. The lungs are clear and expanded. There is no demonstrated pleural abnormality. Normal size heart. Normal mediastinum and mariella. Normal visualized pulmonary arteries. Normal visualized aortic arch and descending thoracic aorta. Normal visualized thoracic spine. Normal visualized ribs, clavicles, and shoulders. There is no demonstrated abnormality of the visualized soft tissue structures of the upper abdomen. RAD/Chest 1 View (Portable) IMPRESSION: Normal x-ray examination of the chest. Electronically Signed: Naot Ann MD at 13:26 EDT ,
--- NOTE | 2023-11-29 12:48 | EKG12_ITS ---
Test Reason : SYNCOPE Blood Pressure : / mmHG Vent. Rate : 078 BPM Atrial Rate : 078 BPM P-R Int : 144 ms QRS Dur : 082 ms QT Int : 390 ms P-R-T Axes : 027 014 -01 degrees QTc Int : 444 ms Normal sinus rhythm Normal ECG Confirmed by Norberto Aragon ([id number]), editorial intern WOLF MCDONNELL ([id number]) on 11/30/2023 12:52:18 PM Referred By: Confirmed By:Norberto Aragon
--- NOTE | 2023-11-29 12:50 | EX.ED.DYSGE1 ---
HPI History of Present Illness Chief Complaint: Syncope Narrative Narrative: Patient presents from urgent care after syncopal episode at urgent care. Patient relates history that on Wednesday, 2 days ago, while they were in the shower, they felt a pop and have had knee pain since then. It is worse with weightbearing and walking. It is more in the medial to anterior aspect. While at urgent care, patient had a syncopal episode, and now feels tingling all over as well as left knee pain. No prodromal chest pain or shortness of breath. Blood sugar was in the 80s, and patient had eaten prior this morning, and is not diabetic. PFSH [facility] Home Medications ?Medication ?Instructions ?Recorded ?Last Taken ?Type drospirenone 3 mg-ethinyl 1 tab PO DAILY 04/23/16 01/09/20 History estradiol 0.03 mg tablet (Adele) fluoxetine 20 mg capsule 20 mg PO DAILY 12/14/17 01/09/20 History ciprofloxacin HCl 500 mg tablet 500 mg PO BID #14 tabs 01/26/20 Unknown Rx phenazopyridine 100 mg tablet 100 mg PO TID PRN pain 6 doses #6 02/17/21 Unknown Rx (Pyridium) tabs sulfamethoxazole 800 1 tab PO BID 10 days #20 tabs 02/17/21 Unknown Rx mg-trimethoprim 160 mg tablet (Bactrim DS) ondansetron 4 mg disintegrating 4 mg PO Q8H PRN PRN Nausea #10 tabs 02/28/23 Unknown Rx tablet hydrocodone-acetaminophen 5-325mg 1 tab PO Q6H PRN PRN Pain 2 days 09/19/23 Unknown Rx 5mg-325mg #5 TABLETS Allergy/AdvReac Type Severity Reaction Status Date / Time morphine Allergy Intermediate Hives Verified 09/19/23 16:51 blue dye AdvReac Diarrhea Verified 09/19/23 16:51 latex AdvReac Other Verified 09/19/23 16:51 Social History Smoking Status: Never smoker ROS ROS ED ROS Narrative Constitutional: No fever, no chills. HEENT: No sore throat. No neck pain. No loss of vision. No rhinorrhea. Cardiovascular: No chest pain. No palpitations. No pedal edema. Respiratory: No cough, no shortness of breath. Abdominal: No abdominal pain. No nausea. No vomiting. Genitourinary: No dysuria. No hematuria. Musculoskeletal: No myalgias. Positive left knee pain, medial to midline, worse with weightbearing and walking. Neurologic: No headaches. No dizziness. No lightheadedness. Positive syncopal episode at urgent care. Skin: No rash. No change in color. Psychiatric: No depression. No anxiety. EXAM Physical Exam Narrative Exam Narrative: Afebrile. Vital signs noted. HEENT: Normocephalic. Atraumatic. PERRL, EOMI. Neck soft and supple. No point tenderness or step off. Cardiovascular: Regular rate and rhythm. No murmurs, rubs, or gallops appreciated. Respiratory: No tachypnea. Lungs clear to auscultation bilaterally. Gastrointestinal: Abdomen soft, nontender, with normoactive bowel sounds. No rebound or guarding. Neurological: Awake. Alert. Nonfocal, nonlateralizing. Skin: No rash. Normal color. No pallor. Musculoskeletal: No pedal edema. Full range of motion extremities. Positive tenderness palpation medial to anterior left knee below patella. Neuro vas intact distally with palpable dorsalis pedis pulse. Const Vital Signs: 11/29/23 12:01 11/29/23 12:06 11/29/23 14:01 Temperature 98.3 F Temperature Source Axillary Pulse Rate 85 90 Respiratory Rate 15 16 Respiratory Effort Normal Respiratory Pattern Normal Blood Pressure 128/83 H 110/78 Blood Pressure Mean 98 88 Pulse Ox 97 100 Oxygen Delivery Method Room Air Room Air MDM MDM MDM Narrative Medical decision making narrative: In the differential diagnosis is internal derangement of left knee versus fracture. Regarding the syncopal episode, and may have been vasovagal versus transient hypoglycemia. Comprehensive workup was pursued. I will obtain x-rays of the left knee and 4 views to help rule out fracture. EKG will be obtained to rule out prolonged QT C or dysrhythmia. Patient was placed on a quality assurance monitor final as well to look for dysrhythmia. Patient bolused IV fluids 1 L intravenously. EKG obtained and interpreted by myself independently as normal sinus rhythm at 78 bpm without ectopy or acute ST changes. No STEMI. QTc 444 ms. I reviewed the patient's laboratory work and they have a normal white count of 9.6, hemoglobin slightly hemoconcentrated at 17.7 with hematocrit 52.9, platelet count 286. BUN is normal at 16 with creatinine slightly elevated at 1.16. Glucose is elevated at 130 with anion gap low at 4. Urinalysis negative for infection. I do not feel antibiotics are indicated. There are 50 ketones. High-sensitivity troponin is less than 3. I do not feel that patient requires serial enzymes. Chest x-ray interpreted by myself independently shows no evidence of an acute process, no pneumonia or pneumothorax. I reviewed the radiology report which confirms my independent interpretation. X-rays of the left knee and 4 views also interpreted by myself independently shows no evidence of an acute fracture or effusion. I reviewed the radiology report which also confirms my independent interpretation. At this point in time, upon repeat examination at approximately 1420, patient feels improved. I am unsure as to the cause of the reported syncope but feels that it could have been transient hypoglycemia versus vasovagal reaction. Patient will be placed in an Herminio wrap for her left knee and given crutches to be weightbearing as tolerated. Referred to orthopedics on-call, Dr. Tunde Fofana as needed. Patient can also follow-up with primary care. I feel that the patient can be discharged to follow-up. Return instructions reviewed. Disposition is discharged in stable condition. History & Record Review Discussion w/independent historian: Patient Lab Data Attestation: I reviewed the patient's lab results. Labs: Laboratory Results - last 24 hr 11/29/23 11/29/23 11/29/23 12:37 13:00 13:25 WBC 9.6 RBC 6.15 H Hgb 17.7 H Hct 52.9 H MCV 86.0 MCH 28.8 MCHC 33.5 RDW Std Deviation 40.7 RDW Coeff of Anne 13.2 Plt Count 286 MPV 11.3 Immature Gran % (Auto) 0.400 Neut % (Auto) 64.2 Lymph % (Auto) 27.9 Mellette % (Auto) 3.9 Eos % (Auto) 2.3 Baso % (Auto) 1.3 H Absolute Neuts (auto) 6.2 Absolute Lymphs (auto) 2.67 Nucleated RBC % 0 Sodium 139 Potassium 3.5 Chloride 104 Carbon Dioxide 31.0 Anion Gap 4 L BUN 16 Creatinine 1.16 H Estim Creat Clear Calc 62.44 Est GFR (MDRD) Af Amer 69 Est GFR (MDRD) Non-Af 57 L BUN/Creatinine Ratio 13.8 Glucose 130 H Calcium 9.5 Troponin I High Sens < 3 L Urine Color Yellow Urine Clarity Clear Urine pH 6.5 Ur Specific [place] 1.015 Urine Protein 30 H Urine Glucose (UA) Normal Urine Ketones 50 H Urine Occult Blood 10 H Urine Nitrite Negative Urine Bilirubin 1 H Urine Urobilinogen 1 H Ur Leukocyte Esterase 25 H Urine RBC 0-5 SEEN Urine WBC 0-5 SEEN Ur Squamous Epith Cells 0-5 SEEN Urine Bacteria 2+ Urine Mucus 2+ POC Glucose 142 H Radiography Diagnostic Testing: Clinical Impression(s) from Imaging Studies Chest X-Ray 11/29/23 12:48 IMPRESSION: Normal x-ray examination of the chest. Electronically Signed: Nato Ann MD at 13:26 EDT , Knee X-Ray 11/29/23 13:05 IMPRESSION: Normal x-ray examination of the knee. Electronically Signed: Nato Ann MD at 13:25 EDT , Discharge Plan Triage Chief Complaint: Syncope ED Provider: Jm Israel Dx/Rx/DC Orders Clinical Impression: Left knee sprain, Syncope Instructions: ED Knee Sprain, ED Fainting, Uncertain Cause Prescriptions: No Action drospirenone-ethinyl estradiol [Adele] 1 EACH tablet 1 tab PO DAILY Patient Comments: fluoxetine 20 MG capsule 20 mg PO DAILY Patient Comments: Take 1 capsule by mouth once daily. ciprofloxacin HCl 500 MG tablet 500 mg PO BID Qty: 14 0RF sulfamethoxazole-trimethoprim [Bactrim DS] 800-160 mg tablet 1 tab PO BID 10 Days Qty: 20 0RF phenazopyridine [Pyridium] 100 mg tablet 100 mg PO TID PRN (Reason: pain) Qty: 6 0RF ondansetron 4 mg tablet,disintegrating 4 mg PO Q8H PRN PRN (Reason: Nausea) Qty: 10 0RF hydrocodone-acetaminophen 5-325 mg tablet 1 tab PO Q6H PRN PRN (Reason: Pain) 2 Days Qty: 5 0RF Primary Care Provider: Cristian Castillo Referrals: Tunde Fofana MD [Med Staff - Active Staff] - As soon as possible Cristian Castillo MD [Primary Care Provider] - 1 Week if not improving Activity Restrictions/Additional Instructions: [id number] medications like Tylenol or ibuprofen as needed for your left knee pain. Follow-up with orthopedics soon as possible. Print Language: Latvian Disposition Disposition: Home, Self Care
[2023-11-29 12:55] LABS: Bedside Glucose 142 mg/dL (74-106)
[2023-11-29] MEDS: 0.9% Normal Saline (1000mL) 1,000 ML 1000 ML IV (12:56)
--- NOTE | 2023-11-29 13:05 | RAD_ITS ---
STUDY: X-RAY - LEFT KNEE REASON FOR EXAM: Female, 33 years old. [place] pop. TECHNIQUE: 4 view(s) of the knee. COMPARISON: None. FINDINGS: Normal visualized distal femur. Normal visualized proximal tibia and fibula. Normal proximal tibiofibular articulation. Normal medial femorotibial compartment. Normal lateral femorotibial compartment. Normal patellofemoral articulation. The soft tissue structures are unremarkable. RAD/Knee 4 or More Views IMPRESSION: Normal x-ray examination of the knee. Electronically Signed: Nato Ann MD at 13:25 EDT ,
[2023-11-29 13:11] LABS: Absolute Lymphocyte Count 2.67 X10^3/uL (0.83-4.51); Absolute Neutrophil Count 6.2 X10^3/uL (2.0-7.7); Basophil# 0.12 X10^3/uL; Basophil% 1.3 % (0-1); Eosinophil# 0.22 X10^3/uL; Eosinophils% 2.3 % (0-5); Hematocrit 52.9 % (37-47); Hemoglobin 17.7 g/dL (12.0-15.0); Lymphocyte # 2.67 X10^3/ul (0.83-4.51); Lymphocyte % 27.9 % (19-41); Mean Corp Hgb Conc 33.5 g/dL (32-36); Mean Corpuscular Hgb 28.8 pg (27.0-32.0); Mean Platelet Vol. 11.3 fl (6.2-12.0); Monocyte# 0.37 X10^3/uL; Monocyte% 3.9 % (0-10); NRBC Flagged by Analyzer 0 % (0-5); Neutrophil # 6.16 X10^3/uL (2.7-7.7); Neutrophil % 64.2 % (47-70); Platelet Count 286 K/mm3 (150-450); RBC Distribution Width CV 13.2 % (11.6-14.6); RBC Distribution Width SD 40.7 fl (35.1-43.9); Red Blood Count 6.15 M/mm3 (4.2-5.4); White Blood Count 9.6 K/mm3 (4.4-11.0)
[2023-11-29 13:30] LABS: Anion Gap 4 (5-15); BUN 16 mg/dL (7-18); BUN/Creat Ratio 13.8 RATIO (10-20); Calcium,Total 9.5 mg/dL (8.5-10.1); Chloride 104 mmol/L (98-107); Creatinine, Serum 1.16 mg/dL (0.55-1.02); EST Glomerular Filtration Rate 57 mL/min (>60); Est Glom Filt Rate - Afr Amer 69 mL/min (>60); Estimated Creatinine Clearance 62.44 ml/min; Glucose 130 mg/dL (74-106); Potassium 3.5 mmol/L (3.5-5.1); Sodium Level 139 mmol/L (136-145); Troponin-I HS < 3 pg/mL (3.0-54.0)
[2023-11-29 13:33] LABS: Color, Urine Yellow (Yellow); Glucose, Dipstick Normal (Normal); Ketone-Dipstick 50 mg/dl (Negative); Leukocyte Esterase-Dipstick 25 /ul (Negative); Nitrite-Dipstick Negative (Negative); Occult Blood-Urine 10 /ul (Negative); Protein-Dipstick 30 mg/dl (Negative); Specific Gravity, Urine 1.015 (1.002-1.030); Urine Clarity Clear (Clear); Urine Urobilinogen 1 mg/dl (Normal); Urine pH 6.5 (5.0 - 8.0)
[2023-11-29 13:51] LABS: Urine Bilirubin Dipstick 1 mg/dL (Negative)
[2023-11-29 13:54] LABS: Bacteria 2+ /hpf (None Seen); Mucous, Urine 2+ /hpf (<or=2+); Red Blood Cells-Urine 0-5 SEEN /hpf (0-5); Squamous Epithelial Cells - UA 0-5 SEEN /hpf (5-10); White Blood Cells 0-5 SEEN /hpf (0-5)
[2023-11-29 14:01] VITALS: BP 110/78; PULSE 90; RESP 16; O2SAT 100
[2023-11-29 14:45] VITALS: BP 121/75; PULSE 72; RESP 16; TEMP 36.9; O2SAT 100
== END 2023-11-29 14:46 | disposition home or self-care (01) ==
PROVIDERS: Emergency Provider Emergency Medicine; PCP Internal Medicine; Visit Provider Emergency Medicine
DX: S83.92XA Sprain of unspecified site of left knee, initial encounter (principal); R55 Syncope and collapse; M25.562 Pain in left knee; X58.XXXA Exposure to other specified factors, initial encounter
CPT/HCPCS: 51701; 71045; 73564; 80048; 81001; 82962; 84484; 85025; 93005; 96360; 99285; J7030; P9612; A4216